=== PATIENT | female | born 1955 | race Caucasian/White ===

== ENCOUNTER 2018-10-15 14:16 | Day surgery (SDC) ==
--- NOTE | 2018-10-15 15:14 | Diag Imaging Result Doc PS360 ---
EXAM: CHEST-PORTABLE 10/15/2018 HISTORY: ams TECHNIQUE: AP portable upright at 1506 COMMENT: The inspiration is suboptimal. There is cardiomegaly. There is increased pulmonary vascularity. The appearance of the chest has not changed significantly since 02/27/2018. IMPRESSION: Stable chest. Electronically signed by Tai Soler 10/15/2018 3:12 PM
[2018-10-15 15:22] LABS: URINE SOURCE CATH
[2018-10-15 15:29] LABS: BASO# 0.04 X1000 (0.0-0.2); BASO% 0.9 % (0.0-0.8); EOS# 0.16 X1000 (0.0-0.7); EOS% 3.7 % (0.0-10.0); HEMATOCRIT 37.4 % (37.0-47.0); HEMOGLOBIN 12.7 g/dL (12.0-16.0); IMM GRAN# 0.03 X1000 (0.0-0.04); IMM GRAN% 0.7 % (0.0-0.5); LYMPH# 1.15 X1000 (1.2-3.4); LYMPH% 26.3 % (20.5-51.1); MCH 32.9 PG (27-31); MCV 96.9 FL (81-99); MONO% 11.4 % (1.7-9.3); MPV 11.3 FL (7.4-10.4); PLT 95 X1000 (130-400); RBC 3.86 XMIL (4.2-5.4); RDW 14.2 % (11.5-14.5); WBC 4.38 X1000 (4.8-10.8)
[2018-10-15 15:35] LABS: BILIRUBIN URINE NEGATIVE (NEGATIVE); BLOOD URINE SMALL (NEGATIVE); COLOR YELLOW; GLUCOSE URINE NEGATIVE (NEGATIVE); KETONE URINE NEGATIVE (NEGATIVE); LEUKOCYTES URINE MODERATE (NEGATIVE); NITRITE URINE NEGATIVE (NEGATIVE); PH URINE 6.5; PROTEIN URINE 30 mg/dL (NEGATIVE); SP GRAVITY URINE 1.018; TURBIDITY URINE HAZY (CLEAR); UROBILINOGEN URINE >12 mg/dL (NORMAL)
[2018-10-15 15:37] LABS: INR 1.44; PROTIME 18.7 Seconds (11.0-16.0); PTT 32.2 Seconds (22.3-41.8)
[2018-10-15 15:39] LABS: UR EPITHELIAL CELLS >10 /HPF (<10); URINE BACTERIA NEGATIVE /HPF; URINE WBC 20-40 /HPF (<10)
[2018-10-15 15:48] LABS: AGAP 12; ALBUMIN 3.1 g/dL (3.5-5.0); ALKALINE PHOSPHATASE 102 U/L (32-104); BUN 11 mg/dL (8-22); CALCIUM 9.3 mg/dL (8.8-10.2); CHLORIDE 116 mmol/L (98-107); CK PROFILE 93 U/L (24-173); COSMO 288; CREATININE 0.7 mg/dL (0.5-0.9); ESTIMATED GFR > 60; GLUCOSE 103 mg/dL (70-104); GOT 58 U/L (10-30); GPT 23 U/L (10-36); POTASSIUM 4.4 mmol/L (3.5-5.1); SODIUM 145 mmol/L (136-145); TCO2 17 mmol/L (25-35); TOTAL BILIRUBIN 3.06 mg/dL (0.20-1.00); TOTAL PROTEIN 6.2 g/dL (6.3-8.3)
[2018-10-15 15:55] LABS: URINE CASTS GRANULAR PRESENT; URINE CRYSTALS NONE SEEN; URINE YEAST NONE SEEN
--- NOTE | 2018-10-15 15:56 | Diag Imaging Result Doc PS360 ---
EXAM: CT HEAD W/O CONTRAST 10/15/2018 HISTORY: AMS TECHNIQUE: This exam was performed using automated exposure control, adjustment of mA or kV according to patient size, and/or use of iterative reconstruction technique. COMMENT: There is no evidence of mass effect, bleed, or abnormal extra-axial fluid collection. There is hyperostosis of the calvarium. There is no evidence of acute fracture. The paranasal sinuses are clear. Compared to the previous examination of 02/27/2018, there has been no appreciable change. IMPRESSION: No evidence of acute intracranial disease. Electronically signed by Tai Soler 10/15/2018 3:53 PM
[2018-10-15] MEDS ORDERED: ROCEPHIN 1 GM in NS 50 ML IV ONE (16:40)
[2018-10-15] MEDS ORDERED: SODIUM CHLORIDE 0.9% INJ ONE ×2 (16:47→19:47)
[2018-10-15] MEDS ORDERED: PROTONIX IV ONE (16:47)
[2018-10-15] MEDS ORDERED: TORADOL IV PRN (17:34)
[2018-10-15] MEDS ORDERED: NS 1,000 ML IV ONE ×2 (17:34→19:54)
[2018-10-15] MEDS ORDERED: ZOFRAN PO PRN (17:34)
[2018-10-15] MEDS ORDERED: NS 50 ML ONE (18:24)
[2018-10-15] MEDS ORDERED: ROCEPHIN ONE (18:25)
[2018-10-15] MEDS: ZOSYN 3.375 GM in NS 50 ML IV SCH (20:27)
[2018-10-15] MEDS: LOVENOX SUBQ SCH (20:28)
[2018-10-15] MEDS: XIFAXAN PO SCH (20:28)
[2018-10-15] MEDS: LACTULOSE PO SCH (20:28)
--- NOTE | 2018-10-15 20:29 | HISTORY AND PHYSICAL ---
CHIEF COMPLAINT: Altered mental status, confusion. HPI: She is a 63-year-old obese white female discharged 6 months ago. Basically came into the hospital with altered mental status, confusion, UTI symptoms. Upon workup in the emergency room CT head is negative. Chest x-ray stable and she has UTI. PT slightly elevated 18, INR 1.4. Basically admitted to the hospital with altered mental status due to UTI, plasma lactate levels is normal. Ammonia level is pending. She has a history of CASANOVA with splenomegaly and cirrhosis of liver. As a result, a hospital admission was warranted. 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 PAST SURGICAL HISTORY: Tonsillectomy, cholecystectomy, vaginal hysterectomy in 1997 due to cervical cancer, , right cataract surgery. MEDICATIONS: Aldactone 50 mg daily, Icar C Plus 1 tablet daily, potassium 20 mEq daily, lactulose 20 p.o. b.i.d., Lexapro 10 daily, Lasix 40 daily. ALLERGIES: Not known. SOCIAL HISTORY: , 2 kids, retired, lives in [place]. No smoking, no alcohol. FAMILY HISTORY: Father from congestive heart failure and COPD, mother had a stroke at 92 and sister had of lung cancer. REVIEW OF SYSTEMS: HEENT: No headache, no vision problem. No earache, no sore throat . Cardiopulmonary: No chest pain, shortness of breath, PND, orthopnea. Gastrointestinal: Abdominal hernia, no nausea vomiting, history of dysuria, hesitancy, frequency and swelling of feet. No joint pain. Neuro: Confusion and no weakness or seizures. EXAMINATION: Temperature is 98.1 degrees, pulse is 86, blood pressure 140/76, 5 feet 4, 260 pounds.HEENT: Atraumatic, normocephalic. Pupils equal, round, reactive to light. No significant anemia, no jaundice noted. Neck: Supple. No lymphadenopathy. Chest: Bilateral air entry. Heart: Distant heart sounds. Breast: Deferred. Belly: Soft, obese, with large ventral hernia noted. Extremities: Chronic stasis changes. Extremities: Nonpitting edema, no asterixis noted. No obvious deficits noted. INVESTIGATIONS: CBC. White cell count 4.3, hematocrit 37, platelets 95,000. PT 18, INR 1.4. SMA 7 is normal. Total bilirubin 3.6, albumin 3.1, proBNP is normal. Cardiac enzymes were normal. Urine is positive for infection. Chest x-ray slightly cardiomegaly. CT head is negative. ASSESSMENT AND PLAN: A 63-year-old white female admitted to the hospital with metabolic encephalopathy due to urinary tract infection with the following problems. 1. Urinary tract infection. IV Zosyn. 2. 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 Previous workup was negative. 3. Thrombocytopenia stable. 4. Elevated PT due to cirrhosis and will use some low dose of Lovenox for DVT prophylaxis. 5. Check the ammonia level and will continue on Xifaxan and lactulose. 6. Reconcile home medications. Will use the IV fluids 40 mL/h and repeat the labs in the morning and follow up on the pending labs. 7. Large ventral hernia nonobstructive currently stable. 8. History of sleep apnea. Not interested in CPAP. 9.Tinea cruris Nystatin cream as directed. cc: Lio Westfall MD MTDD
[2018-10-16] MEDS: ZOSYN 3.375 GM in NS 50 ML IV SCH ×4 (03:53→23:28)
[2018-10-16] MEDS: MYCOSTATIN CREAM TOP SCH ×3 (04:08→23:28)
[2018-10-16 05:12] LABS: ALLEN TEST YES; BLOOD TYPE ARTERIAL; HCO3-(ACT) 22.6 mmoll (20.0-26.0); METHB 1.1 % (0.0-1.5); O2(CT) 14.6 mL/dL (15.0-23.0); O2HB 95.4 % (95.0-99.0); PCO2(98.6) 32 mmHg (35-45); PO2(98.6) 82 mmHg (60-100); SAMPLE BLOOD; SAO2 99.1 % (95.0-100.0); THB 10.8 g/dL (11.5-17.4); pH(98.6) 7.42 (7.35-7.45)
[2018-10-16 07:56] LABS: INR 1.37
[2018-10-16 08:02] LABS: BASO# 0.02 X1000 (0.0-0.2); BASO% 0.5 % (0.0-0.8); EOS# 0.17 X1000 (0.0-0.7); EOS% 4.5 % (0.0-10.0); HEMATOCRIT 32.2 % (37.0-47.0); HEMOGLOBIN 10.8 g/dL (12.0-16.0); LYMPH# 1.24 X1000 (1.2-3.4); LYMPH% 32.5 % (20.5-51.1); MCH 32.7 PG (27-31); MCHC 33.5 g/dL (33-37); MCV 97.6 FL (81-99); MONO# 0.44 X1000 (0.11-0.59); MONO% 11.5 % (1.7-9.3); MPV 10.5 FL (7.4-10.4); NEUT# 1.94 X1000 (1.4-6.5); PLT 81 X1000 (130-400); RDW 14.3 % (11.5-14.5); WBC 3.81 X1000 (4.8-10.8)
[2018-10-16 08:12] LABS: AGAP 7; ALB/GLOB RATIO 0.9; ALBUMIN 2.5 g/dL (3.5-5.0); ALKALINE PHOSPHATASE 89 U/L (32-104); BUN 9 mg/dL (8-22); CALCIUM 8.5 mg/dL (8.8-10.2); CHLORIDE 115 mmol/L (98-107); COSMO 281; CREATININE 0.5 mg/dL (0.5-0.9); ESTIMATED GFR > 60; GLUCOSE 85 mg/dL (70-104); GOT 31 U/L (10-30); GPT 17 U/L (10-36); POTASSIUM 3.5 mmol/L (3.5-5.1); SODIUM 142 mmol/L (136-145); TCO2 20 mmol/L (25-35); TOTAL BILIRUBIN 3.27 mg/dL (0.20-1.00); TOTAL PROTEIN 5.4 g/dL (6.3-8.3)
[2018-10-16 08:57] LABS: HEMOGLOBIN A1C 4.1 % (4.8-6.0)
[2018-10-16] MEDS: XIFAXAN PO SCH ×2 (11:03→23:29)
[2018-10-16] MEDS: LACTULOSE PO SCH ×2 (11:03→23:28)
[2018-10-16] MEDS: LEXAPRO PO SCH (11:03)
[2018-10-16] MEDS: PROTONIX IV SCH (11:03)
--- NOTE | 2018-10-16 12:46 | PROGRESS NOTE ---
DATE: 10/16/2018 SUBJECTIVE: The patient's confusion is slightly better. She is morbidly obese. She is lot better than yesterday. PHYSICAL EXAMINATION: Vital Signs: Temperature is 98 degrees, pulse is 80, blood pressure 130/65, weight 260 pounds. HEENT Examination: Within normal limits. Chest: Clear. Heart: Heart sounds are regular. Abdomen: Belly is soft. Large ventral hernia. Extensive tenia infection noted in both groins. ASSESSMENT AND PLAN: 1. A 63-year-old, white female admitted to the hospital with metabolic encephalopathy due to ammonia. Ammonia level is high due to cirrhosis of the liver due to nonalcoholic steatohepatitis. Continue on Xifaxan and lactulose. 2. Clear liquids. 3. Urinary tract infection, on intravenous Zosyn. 4. Gastrointestinal prophylaxis with intravenous Protonix and deep venous thrombosis prophylaxis with Lovenox. 5. Continue on the clear liquids. Discontinue intravenous fluids. Out of the bed with physical therapy. Follow up on the labs in the morning. 6. Chronic thrombocytopenia due to splenomegaly from cirrhosis. LEVEL OF DOCUMENTATION: 25 minutes. cc: Lio Westfall MD
[2018-10-16] MEDS: LOVENOX SUBQ SCH (23:29)
[2018-10-17] MEDS: ZOSYN 3.375 GM in NS 50 ML IV SCH ×5 (04:49→23:45)
[2018-10-17 08:05] LABS: INR 1.38; PROTIME 18.1 Seconds (11.0-16.0)
--- NOTE | 2018-10-17 08:08 | EKG Report ---
Test Performed on : 10/15/2018 2:24:05 PM Test Reason : ams Blood Pressure : / mmHG Vent. Rate : 089 BPM Atrial Rate : 089 BPM P-R Int : 184 ms QRS Dur : 094 ms QT Int : 388 ms P-R-T Axes : 036 -05 016 degrees QTc Int : 472 ms Normal sinus rhythm. Normal ECG When compared with ECG of 15-OCT-2018 14:22, (Unconfirmed) Previous ECG has undetermined rhythm, needs review Unconfirmed Result
[2018-10-17 08:15] LABS: BASO# 0.02 X1000 (0.0-0.2); BASO% 0.5 % (0.0-0.8); EOS# 0.31 X1000 (0.0-0.7); EOS% 8.2 % (0.0-10.0); HEMATOCRIT 31.5 % (37.0-47.0); HEMOGLOBIN 10.5 g/dL (12.0-16.0); LYMPH# 1.55 X1000 (1.2-3.4); LYMPH% 40.8 % (20.5-51.1); MCH 32.3 PG (27-31); MCHC 33.3 g/dL (33-37); MCV 96.9 FL (81-99); MONO# 0.37 X1000 (0.11-0.59); MONO% 9.7 % (1.7-9.3); MPV 11.1 FL (7.4-10.4); NEUT# 1.55 X1000 (1.4-6.5); NEUT% 40.8 % (42.2-75.2); PLT 83 X1000 (130-400); RBC 3.25 XMIL (4.2-5.4); RDW 13.9 % (11.5-14.5)
[2018-10-17 08:24] LABS: AGAP 8; ALB/GLOB RATIO 0.9; ALBUMIN 2.5 g/dL (3.5-5.0); ALKALINE PHOSPHATASE 87 U/L (32-104); BUN 8 mg/dL (8-22); CALCIUM 8.5 mg/dL (8.8-10.2); CHLORIDE 117 mmol/L (98-107); COSMO 286; CREATININE 0.6 mg/dL (0.5-0.9); ESTIMATED GFR > 60; GLUCOSE 88 mg/dL (70-104); GOT 30 U/L (10-30); GPT 16 U/L (10-36); POTASSIUM 3.4 mmol/L (3.5-5.1); SODIUM 145 mmol/L (136-145); TCO2 20 mmol/L (25-35); TOTAL BILIRUBIN 2.74 mg/dL (0.20-1.00); TOTAL PROTEIN 5.3 g/dL (6.3-8.3)
[2018-10-17] MEDS ORDERED: KLOR-CON PO ONE (08:35)
[2018-10-17] MEDS: LEXAPRO PO SCH (08:37)
[2018-10-17] MEDS: PROTONIX IV SCH (08:37)
[2018-10-17] MEDS: LACTULOSE PO SCH ×2 (08:37→20:22)
[2018-10-17] MEDS: XIFAXAN PO SCH ×2 (08:37→20:14)
[2018-10-17] MEDS: MYCOSTATIN CREAM TOP SCH ×2 (08:38→20:22)
[2018-10-17] MEDS: LOVENOX SUBQ SCH (20:14)
--- NOTE | 2018-10-17 20:45 | PROGRESS NOTE ---
DATE: 10/17/2018 SUBJECTIVE: The patient is slightly improved. Confusion is better. Morbidly obese. EXAMINATION: Vital Signs: Temperature is 97, pulse is 63, blood pressure 132/51 on room air 98%. HEENT: Within normal limits. Neck: Supple. No lymphadenopathy. Chest: Clear. Heart: Sounds are regular. Abdomen: Belly is soft, nontender. Extensive ventral hernia noted and extensive tenia cruris noted. LABS: CBC: White cell count 3.8, hematocrit 31, platelets 83. PT 18. INR 1.38. SMA-7: Sodium 145, potassium 3.4, chloride 117, BUN 8, creatinine 0.6, glucose 88. Total bilirubin 2.74, ammonia 90. LFTs were normal. ASSESSMENT AND PLAN: 1. Altered mental status due to ammonia encephalopathy. Continue on Xifaxan and lactulose. Check the levels in the morning. 2. Urinary tract infection on IV Zosyn. 3. Advance the diet and check the levels in the morning. 4. Continue on nystatin cream, tenia cruris. LEVEL OF DOCUMENTATION: 25 minutes. cc: Lio Westfall MD
[2018-10-18] MEDS: ZOSYN 3.375 GM in NS 50 ML IV SCH ×4 (05:40→23:35)
[2018-10-18 08:13] LABS: AGAP 7; BUN 6 mg/dL (8-22); CALCIUM 8.6 mg/dL (8.8-10.2); CHLORIDE 111 mmol/L (98-107); COSMO 278; CREATININE 0.5 mg/dL (0.5-0.9); ESTIMATED GFR > 60; GLUCOSE 88 mg/dL (70-104); POTASSIUM 3.5 mmol/L (3.5-5.1); SODIUM 141 mmol/L (136-145); TCO2 23 mmol/L (25-35)
[2018-10-18 09:13] LABS: HEMOGLOBIN A1C 4.1 % (4.8-6.0)
[2018-10-18] MEDS: XIFAXAN PO SCH ×2 (09:30→20:58)
[2018-10-18] MEDS: LEXAPRO PO SCH (09:30)
[2018-10-18] MEDS: PROTONIX IV SCH (09:30)
[2018-10-18] MEDS: MYCOSTATIN CREAM TOP SCH ×2 (09:31→20:58)
[2018-10-18] MEDS: LACTULOSE PO SCH ×2 (09:31→20:58)
[2018-10-18] MEDS: LOVENOX SUBQ SCH (20:58)
--- NOTE | 2018-10-18 22:16 | PROGRESS NOTE ---
DATE: 10/18/2018 SUBJECTIVE: The patient is a little better and more alert, tolerating her diet very well. OBJECTIVE: On exam, temperature is 98.8 degrees, pulse is 90, blood pressure 110/62. The patient is alert and oriented to time, place and person. HEENT exam within normal limits. Chest is clear. Distant heart sounds. Belly is soft, obese. Suboptimal exam. Tinea cruris in the groin noted. Chronic stasis changes in both legs. LABORATORY DATA: CBC: White cell count 3.8, hematocrit 32, platelets 83,000. PT 18, INR 1.38. SMA 7: Sodium 141, potassium 3.5, chloride 111, BUN 6, creatinine 0.8. Hemoglobin A1c 4.1. Ammonia level 60. ASSESSMENT AND PLAN: 1. Ammonia encephalopathy due to cirrhosis of liver, due to nonalcoholic steatohepatitis, improving. On Xifaxan and lactulose. 2. Urinary tract infection. On intravenous antibiotics. 3. Morbid obesity, stable. 4. Continue home medications. If she is stable, we will discharge in the morning. Out of the bed with physical therapy. Level of documentation 25 minutes. cc: Lio Westfall MD
[2018-10-19] MEDS: ZOSYN 3.375 GM in NS 50 ML IV SCH ×2 (06:07→11:10)
[2018-10-19 07:53] VITALS: BP 119/40
[2018-10-19] MEDS ORDERED: PREVNAR 13 IM ONE (08:47)
[2018-10-19] MEDS: LACTULOSE PO SCH (09:26)
[2018-10-19] MEDS: PROTONIX IV SCH (09:26)
[2018-10-19] MEDS: XIFAXAN PO SCH (09:26)
[2018-10-19] MEDS: LEXAPRO PO SCH (09:26)
--- NOTE | 2018-10-20 | DISCHARGE SUMMARY ---
ADMISSION DATE: 10/15/2018 DISCHARGE DATE: 10/19/2018 DISCHARGING DIAGNOSES: 1. Altered mental status due to metabolic encephalopathy due to ammonia. 2. Ammonia encephalopathy due to cirrhosis of liver due to non-alcoholic steatohepatitis. 3. Thrombocytopenia due to splenomegaly. 4. Morbid obesity. 5. Large nonobstructive ventral hernia. 6. Tenia cruris. 7. Urinary tract infection. BRIEF HISTORY: Please see the H and P that was done on 10/15/2018. In brief, she is a 63-year- old white female with the above problems, came in with altered mental status associated with elevated ammonia level, UTI symptoms, and rash in the groin due to tenia cruris. HOSPITAL COURSE: Patient was given IV fluids, Xifaxan and lactulose. Follow up ammonia level came down to 60. The patient came back to the baseline. The labs at the time of discharge as follows: White cell count 3.8, hematocrit 31.5, platelets 83,000. PT 18, INR 1.38. ABG on room air pH is 7.42, pCO2 of 32 PO2 of 82. SMA-7: Sodium 140, potassium 3.5, chloride 111, BUN 6, creatinine 0.5. Glucose 88. Hemoglobin A1c 4.1. Calcium 8.6, total bilirubin 2.74. Ammonia level 60. Albumin 23. Urine cultures are pending. DISCHARGE INSTRUCTIONS: 1. Pneumococcal 13 vaccine 10/19/2018. 2. Low-salt diet, fluid restriction. 3. ICar-C Plus 1 tablet daily, lactulose 30 p.o. b.i.d., Levaquin 500 daily for 7 days, Lexapro 10 daily, nystatin powder 1 application b.i.d. 4. Follow up in my office in 2 weeks. cc: Lio Westfall MD
== END 2018-10-19 11:22 | disposition home health service (06) ==
LOC: SUPCPDRO → ED 14:16 → MED 17:27 → INTOOBSV 17:27 → 3N 17:27 → MED 10-19 11:22
PROVIDERS: ATTEND Internal Medicine
CPT/HCPCS: 70450; 71010; 71045; 80048; 80053; 81001; 82140; 82550; 82805; 83036; 83605; 83880; 84484; 85025; 85610; 85730; 90670; 93005; 96365; 96375; 97163; 97530; 99285; A9270; C9113; J0696; J1650; J2543; S0164

== ENCOUNTER 2019-03-21 15:06 | Inpatient (IN) ==
[2019-03-21] MEDS ORDERED: VANCOMYCIN IV PER PHARMACY MISC SCH (17:06)
[2019-03-21 17:47] LABS: HEMATOCRIT 35.3 % (37.0-47.0); HEMOGLOBIN 11.8 g/dL (12.0-16.0); MCH 32.8 PG (27-31); MCHC 33.4 g/dL (33-37); MCV 98.1 FL (81-99); MPV 10.3 FL (7.4-10.4); RBC 3.6 XMIL (4.2-5.4); RDW 14.2 % (11.5-14.5); WBC 5.93 X1000 (4.8-10.8)
[2019-03-21] MEDS ORDERED: VANCOMYCIN 2,500 MG in NS 500 ML IV ONE (18:00)
[2019-03-21 18:11] LABS: AGAP 7; ALB/GLOB RATIO 0.7; ALBUMIN 2.6 g/dL (3.5-5.0); ALKALINE PHOSPHATASE 98 U/L (32-104); BUN 12 mg/dL (8-22); C REACTIVE PROT QUANT 27.21 mg/L (0.00-5.00); CALCIUM 9.2 mg/dL (8.8-10.2); CHLORIDE 107 mmol/L (98-107); COSMO 274; CREATININE 0.6 mg/dL (0.5-0.9); ESTIMATED GFR > 60; GLUCOSE 112 mg/dL (70-104); GOT 28 U/L (10-30); GPT 13 U/L (10-36); POTASSIUM 3.6 mmol/L (3.5-5.1); SODIUM 137 mmol/L (136-145); TCO2 23 mmol/L (25-35); TOTAL BILIRUBIN 2.31 mg/dL (0.20-1.00); TOTAL PROTEIN 6.1 g/dL (6.3-8.3)
[2019-03-21] MEDS: LACTULOSE PO SCH (21:26)
[2019-03-21] MEDS ORDERED: NEXIUM IV SCH (22:15)
[2019-03-21] MEDS ORDERED: SODIUM CHLORIDE 0.9% INJ SCH (22:15)
--- NOTE | 2019-03-21 22:29 | HISTORY AND PHYSICAL ---
CHIEF COMPLAINT: Traumatic ulcer on the right leg, which was not healing since Wednesday. HISTORY OF PRESENT ILLNESS: She is a 63-year-old white female who was seen in the emergency room with a big traumatic ulcer on the right leg. The patient has infected wound, sent home on antibiotics with Silvadene cream and she had grossly foul-smelling drainage and very unkempt. She has a history of cirrhosis of liver and failure of outpatient treatment. Admitted to the hospital with IV antibiotics and wound consult care. PAST MEDICAL HISTORY: 1. 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 2. Colonic diverticulosis. 3. Metabolic syndrome. 4. Ventral hernia, huge on the right side. 5. Kidney stone on the left side. 6. Sleep apnea. 7. B12 deficiency. 8. Recently had shingles on the right T10 distribution. PAST SURGICAL HISTORY: Tonsillectomy, cholecystectomy, vaginal hysterectomy due to cervical cancer, section, right cataract surgery. MEDICATIONS: Lexapro 10 daily, Lasix 40 daily, Icar C Plus 1 tablet daily, Aldactone 50 daily, lactulose 30 p.o. b.i.d. ALLERGIES: Not known. SOCIAL HISTORY: , 2 children, retired, living in [place]. No smoking. No alcohol. FAMILY HISTORY: Father of congestive heart failure and COPD. Mom had a stroke at 92. Sister had lung cancer. REVIEW OF SYSTEMS: HEENT: No headache. No vision problem. No earache. No sore throat. Neck: There is no goiter. No lymphadenopathy. No bruit. Cardiopulmonary: No chest pain, shortness of breath, PND, orthopnea. No lumps in the breast. Gastrointestinal: No nausea, altered bowel habits, bleeding per rectum. Large ventral hernia noted. Genitourinary: No history of hesitancy, frequency, dysuria. Extremities: Chronic lymphedema in both legs, and the right leg had a traumatic ulcer, possibly infected. Neurological: Symptoms are confusion, weakness, dizziness, seizures. PHYSICAL EXAMINATION: VITAL SIGNS: Afebrile, pulse is 90, blood pressure 113/52, 5 feet 4 inches, 270 pounds. HEENT EXAM: Within normal limits. NECK: Supple. No lymphadenopathy. CHEST: Bilateral air entry. CARDIOVASCULAR: Heart sounds are regular, distant. ABDOMEN: Belly is soft. He has a ventral hernia. Suboptimal exam due to obesity. EXTREMITIES: Right leg chronic lymphedema. She has a 3 inches long 2 inches wide ulcer on the right lower leg just above the ankle with surrounding inflammation noted. NEUROLOGIC EXAM: No asterixis noted. INVESTIGATIONS: CBC: White cell count 5.9, hematocrit 35, platelets 151,000. Sodium 137, potassium 3.6, chloride 107, BUN 12, creatinine 0.6, glucose 112, total bilirubin 2.3, elevated ammonia 57, total protein 6.1. ASSESSMENT AND PLAN: 1. 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 Plan is IV vancomycin. Wound consult. 2. Cirrhosis. Continue on lactulose. Ammonia levels were normal. Continue on Lasix and Aldactone. 3. Depression on Lexapro. 4. Nexium and low dose of Lovenox for gastrointestinal and deep venous thrombosis prophylaxis, and we will follow up. cc: Lio Westfall MD
[2019-03-22] MEDS: LOVENOX SUBQ SCH (05:56)
[2019-03-22] MEDS: PROTONIX IV SCH (05:57)
[2019-03-22] MEDS: SODIUM CHLORIDE 0.9% INJ SCH (05:57)
[2019-03-22] MEDS: LACTULOSE PO SCH ×4 (09:23→22:14)
[2019-03-22] MEDS: LEXAPRO PO SCH (09:24)
[2019-03-22] MEDS: ICAR-C PLUS PO SCH (09:24)
[2019-03-22] MEDS: ALDACTONE PO SCH (09:24)
[2019-03-22] MEDS: LASIX PO SCH (09:24)
[2019-03-22] MEDS: SANTYL OINT TOP SCH (11:01)
[2019-03-22] MEDS: VANCOMYCIN 2,000 MG in NS 500 ML IV SCH (15:19)
--- NOTE | 2019-03-22 22:19 | PROGRESS NOTE ---
DATE: 03/22/2019 SUBJECTIVE: The patient is a little better and waiting for wound care consult to be seen. Right leg has a traumatic ulcer, quite a bit large with secondary infection. No fever. OBJECTIVE: Vital signs: Temperature is 99.4 degrees, pulse 82. Vitals are stable. HEENT: Within normal limits. Neck: Supple. Chest: Clear. Ventral hernia noted. Extremities: Traumatic right leg ulcer with localized infection. LABORATORY DATA: Within normal limits. ASSESSMENT AND PLAN: 1. Cirrhosis of liver, stable. 2. Deep vein thrombosis prophylaxis with Lovenox, gastrointestinal prophylaxis with IV Protonix. 3. IV vancomycin with traumatic right leg ulcer and wound care consult was obtained. Continue home medications. Physical therapy out of the bed. LEVEL OF DOCUMENTATION: 25 minutes. cc: Lio Westfall MD MTDD
[2019-03-23] MEDS: SODIUM CHLORIDE 0.9% INJ SCH (06:33)
[2019-03-23] MEDS: LOVENOX SUBQ SCH (06:33)
[2019-03-23] MEDS: PROTONIX IV SCH (06:33)
[2019-03-23] MEDS: LEXAPRO PO SCH (08:46)
[2019-03-23] MEDS: ICAR-C PLUS PO SCH (08:46)
[2019-03-23] MEDS: LASIX PO SCH (08:46)
[2019-03-23] MEDS: ALDACTONE PO SCH (08:46)
[2019-03-23] MEDS: LACTULOSE PO SCH ×2 (08:47→21:02)
[2019-03-23] MEDS: SANTYL OINT TOP SCH (09:48)
[2019-03-23] MEDS: VANCOMYCIN 2,000 MG in NS 500 ML IV SCH (09:48)
--- NOTE | 2019-03-23 21:46 | PROGRESS NOTE ---
DATE: 03/23/2019 SUBJECTIVE: Appreciated wound consult. The patient had Santyl ointment applied after washing, and the wound is dressed. OBJECTIVE/EXAM: Vital Signs: Temperature 98. vitals are stable. HEENT: Within normal limits. Neck: Supple. Chest: Clear. Heart: Sounds are regular. Abdomen: Belly is soft. Suboptimal exam. INVESTIGATIONS: None reported. ASSESSMENT AND PLAN: Traumatic ulcers on the right leg with chronic lymphedema with badly infected wound. Tdap was given 12/27/2018, and continued wound care and IV vancomycin. Other problems are stable if she continues to get better, we will discharge on oral antibiotics and go to the wound clinic as an outpatient and follow up. LEVEL OF DOCUMENTATION: 25 minutes. cc: Lio Westfall MD
[2019-03-24] MEDS: VANCOMYCIN 2,000 MG in NS 500 ML IV SCH (02:08)
[2019-03-24] MEDS: PROTONIX IV SCH (06:15)
[2019-03-24] MEDS: LOVENOX SUBQ SCH (06:15)
[2019-03-24] MEDS: SODIUM CHLORIDE 0.9% INJ SCH (06:15)
[2019-03-24] MEDS: ICAR-C PLUS PO SCH (07:59)
[2019-03-24] MEDS: LEXAPRO PO SCH (08:00)
[2019-03-24] MEDS: ALDACTONE PO SCH (08:00)
[2019-03-24] MEDS: LASIX PO SCH (08:00)
[2019-03-24] MEDS: LACTULOSE PO SCH (08:00)
[2019-03-24] MEDS: SANTYL OINT TOP SCH (08:01)
[2019-03-24 08:16] VITALS: BP 106/44
--- NOTE | 2019-03-25 22:10 | DISCHARGE SUMMARY ---
ADMISSION DATE: 03/21/2019 DISCHARGE DATE: 03/24/2019 DISCHARGING DIAGNOSIS: Right leg traumatic ulcer with chronic lymphedema with localized cellulitis with black eschar. SECONDARY DIAGNOSES: 1. 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 2. Colonic diverticulosis. 3. Metabolic syndrome. 4. Ventral hernia huge on the right side. 5. Kidney stones on the left side. 6. Sleep apnea. 7. B12 deficiency. 8. History of shingles in the right T10 distribution stable. CONSULT: Gricel wound consult. BRIEF HISTORY: Please see the H and P that was done on 03/21/2019. In brief she is 63-year-old white female came in my office as a followup from the ER visits with a foul smelling emanating discharge on the right lower leg about 3 inches long, 2 inches wide, traumatic ulcer which is not healing as an outpatient. She has comorbid condition and she was admitted to the hospital to prevent the impending sepsis due to localized cellulitis. She was given IV Lasix. Wound consult care was obtained. The patient was given Vashe treatment followed by Santyl ointment. She was started on IV vancomycin. Follow up the wound is clean and continue to follow up as an outpatient with the wound clinic in [facility]. LABORATORY DATA: CBC. White cell count 5.9, hematocrit 35, platelets 151,000. Sodium 137, potassium 3.6, chloride 107, BUN 12, creatinine 0.6, glucose 112, calcium 9.2, bilirubin 2.3, ammonia 57, CRP 27, total protein 6.1. DISCHARGE INSTRUCTIONS: 1. The patient was given Tdap 12/27/2018. Pneumococcal vaccine 13 was given in 10/19/2018. 2. Lexapro 10 daily, Lasix 40 daily, Icar-C Plus 1 tablet daily, Aldactone 50 daily, Levaquin 500 daily for 10 days, lactulose 30 mL p.o. b.i.d. for ammonia encephalopathy. Follow up in wound clinic at [facility] and follow up in my office in 10 days. cc: Lio Westfall MD
== END 2019-03-24 11:37 | disposition home health service (06) | DRG 603 ==
LOC: DIRADM 15:06 → 4N 15:31
PROVIDERS: ADMIT Internal Medicine; ATTEND Internal Medicine

== ENCOUNTER 2019-05-05 17:20 | Inpatient (IN) ==
--- NOTE | 2019-05-05 17:57 | PROVIDER DOCUMENTATION ---
HPI-General Adult - General Chief Complaint: Weakness Stated Complaint: EDEMA Time Seen by Provider: 05/05/19 17:53 Source: patient Allergies/Adverse Reactions: Patient Allergies Allergy/AdvReac Type Severity Reaction Status Date / Time No Known Allergies Allergy Verified 05/05/19 18:45 Home Medications: Home Medication List Medication Instructions Recorded Confirmed Last Taken Type Escitalopram Oxalate [Lexapro] 10 mg PO DAILY #30 tab 03/04/18 05/05/19 05/05/19 Rx Furosemide [Lasix] 40 mg PO DAILY 12/22/18 05/05/19 05/05/19 History Iron,Carbonyl/Vit C/Vit B12/FA [Fe 1 tab PO DAILY 12/22/18 05/05/19 05/05/19 History C Plus Tablet] Spironolactone 50 mg PO DAILY 12/22/18 05/05/19 05/05/19 History Lactulose 30 ml PO BID #600 udc 03/24/19 05/05/19 05/05/19 Rx Levofloxacin [Levaquin] 500 mg PO DAILY #10 tab 03/24/19 05/05/19 05/05/19 Rx - History of Present Illness -Gen Adult Nature of Presenting Problems: This theodore 64yo female with PMH of cirrohsis who presents with CC of weakness. The patient reports that starting today she has had some generalized weakness and some vomiting. Location of Pain/Injury: reports: none Onset/Duration: reports: this morning Associated Symptoms: reports: vomiting Review of Systems - Adult - REVIEW OF SYSTEMS - ADULT ROS:: limited per condition Constitutional: denies: fever Eyes: denies: blurred vision Ears, Nose, Mouth & Throat: reports: other (cough) Cardiovascular: denies: chest pain Respiratory: denies: shortness of breath Gastrointestinal: reports: vomiting. denies: abdominal pain, diarrhea Genitourinary: reports: dysuria Musculoskeletal: reports: no symptoms reported. denies: joint pain Integumentary: reports: rash Neurological: reports: no symptoms reported Psychiatric: reports: no symptoms reported. denies: alcohol/drug dependence Endocrine: reports: no symptoms reported Hematologic/Lymphatic: reports: no symptoms reported, other (no bleeding) Allergic/Immunologic: reports: no symptoms reported Past History - Adult - PAST MEDICAL HISTORY-ADULT Review of Records: reports: Old Records Reviewed Major Childhood Illnesses: reports: denies history Cardiovascular: reports: denies history Respiratory: reports: denies history Gastrointestinal: reports: denies history Obstetrical/Gynecological: reports: denies history Genitourinary: reports: denies history Musculoskeletal: reports: denies history Neurological: reports: denies history Endocrine/Immune: reports: denies history Other Conditions: reports: denies history - IMMUNIZATION STATUS Childhood Immunizations: See Nurse Assessment Flu Vaccine: See Nurse Assessment - FAMILY HISTORY Family History: reviewed, not pertinent Physical Exam-General - PHYSICAL EXAM-ADULT Initial Vital Signs Reviewed: Yes - CONSTITUTIONAL General Appearance: alert, slow to respond - EYES Eyes: negative: photophobia - HEAD, EARS, NOSE, MOUTH & THROAT HENMT: normocephalic/atraumatic, moist mucous membranes - NECK Neck: normal inspection - RESPIRATORY Respiratory: decreased breath sounds, rales (left side) - CARDIOVASCULAR Cardiovascular: tachycardia, other (3+ LE edema) - GASTROINTESTINAL (ABDOMEN) Abdominal Exam: non tender, soft - SKIN Integumentary: rash (erythema with tenderness noted on the left lower extremity) - NEUROLOGIC Neurologic: grossly normal - PSYCHIATRIC Psych/Mental Status: normal mood/affect, normal thought content Progress - PLAN OF CARE/RESULTS Progress/Plan/Lab Results: Orders Category Date Time Status CHEST-2 VIEWS [RAD] Stat Exams 05/05/19 17:53 Ordered CBC WITH DIFF [HEME] Stat Lab 05/05/19 17:53 Uncollected COMPREHENSIVE METABOLIC PANEL [CHEM] Stat Lab 05/05/19 17:53 Uncollected PRO B-NATRIURETIC PEPTIDE Stat Lab 05/05/19 17:53 Uncollected PROTIME WITH INR [COAG] Stat Lab 05/05/19 17:54 Uncollected PTT [COAG] Stat Lab 05/05/19 17:54 Uncollected TROPONIN T Stat Lab 05/05/19 17:53 Uncollected URINALYSIS W/POSS RFLX CULT [URINALYSIS] Stat Lab 05/05/19 17:53 Uncollected Result Diagrams: 05/05/19 18:01 05/05/19 18:01 - REASSESSMENT Reassessment #1 Status: other (Discussed case with hospitalist team who have accepted the patient.) Departure - Departure Date of Disposition Decision: 05/05/19 Time of Disposition Decision: 20:30 DIAGNOSIS: Encephalopathy, Tachycardia Cellulitis Qualifiers: Site of cellulitis: extremity Site of cellulitis of extremity: lower extremity Laterality: left Qualified Code(s): L03.116 - Cellulitis of left lower limb Fever Qualifiers: Fever type: unspecified Qualified Code(s): R50.9 - Fever, unspecified Disposition: ADMITTED INPATIENT 09 Certified Medical Emergency: Emergent Condition: Fair Referrals and Follow-Ups: Alberto Westfall MD [Primary Care Provider] - - Critical Care Note This patient required my direct & personal management of CC.: No Attestation - Physician/ MANE Attestation Patient care was provided by Advanced Practice Provider:: No The physician spent face to face time with patient:: Yes Advanced Practice Provider documentation review:: Supervising physician onsite and consulted in the evaluation and care of this patient. The physician did have a face to face encounter with the patient.
[2019-05-05] MEDS ORDERED: NS 1,000 ML IV ONE (18:19)
[2019-05-05 18:30] LABS: BASO# 0.01 X1000 (0.0-0.2); BASO% 0.1 % (0.0-0.8); EOS# 0.02 X1000 (0.0-0.7); EOS% 0.2 % (0.0-10.0); HEMATOCRIT 34.1 % (37.0-47.0); HEMOGLOBIN 11.5 g/dL (12.0-16.0); IMM GRAN# 0.02 X1000 (0.0-0.04); IMM GRAN% 0.2 % (0.0-0.5); LYMPH# 0.43 X1000 (1.2-3.4); LYMPH% 4.8 % (20.5-51.1); MCH 32.3 PG (27-31); MCHC 33.7 g/dL (33-37); MCV 95.8 FL (81-99); MONO# 0.51 X1000 (0.11-0.59); MONO% 5.6 % (1.7-9.3); MPV 10.9 FL (7.4-10.4); NEUT# 8.05 X1000 (1.4-6.5); NEUT% 89.1 % (42.2-75.2); PLT 93 X1000 (130-400); RBC 3.56 XMIL (4.2-5.4); RDW 14.9 % (11.5-14.5); WBC 9.04 X1000 (4.8-10.8)
[2019-05-05 18:36] LABS: INR 1.43; PROTIME 17.7 Seconds (11.0-16.0)
[2019-05-05 18:37] LABS: PTT 34.2 Seconds (22.3-41.8)
[2019-05-05 18:55] LABS: AGAP 12; ALB/GLOB RATIO 0.8; ALBUMIN 2.8 g/dL (3.5-5.0); ALKALINE PHOSPHATASE 100 U/L (32-104); BUN 12 mg/dL (8-22); CALCIUM 9.4 mg/dL (8.8-10.2); CHLORIDE 111 mmol/L (98-107); COSMO 280; CREATININE 0.5 mg/dL (0.5-0.9); ESTIMATED GFR > 60; GLUCOSE 120 mg/dL (70-104); GOT 35 U/L (10-30); GPT 17 U/L (10-36); POTASSIUM 3.8 mmol/L (3.5-5.1); SODIUM 140 mmol/L (136-145); TCO2 17 mmol/L (25-35); TOTAL BILIRUBIN 4.71 mg/dL (0.20-1.00); TOTAL PROTEIN 6.1 g/dL (6.3-8.3)
--- NOTE | 2019-05-05 18:58 | Diag Imaging Result Doc PS360 ---
EXAM: CHEST-1 VIEW - 05/05/2019 HISTORY: fever TECHNIQUE: Portable chest COMPARISON: 03/13/2019 FINDINGS: There is cardiomegaly similar to prior. There is mild prominence of central vascular markings which is decreased. There is no consolidation, pleural effusion, or pneumothorax identified. IMPRESSION: Cardiomegaly. Mild prominence of central vascular markings. No discrete pneumonia. Electronically signed by Gustabo Chadwick 05/05/2019 6:56 PM
[2019-05-05 18:59] LABS: URINE SOURCE CATH
[2019-05-05] MEDS ORDERED: TYLENOL PO ONE (18:59)
[2019-05-05 19:06] LABS: BILIRUBIN URINE SMALL (NEGATIVE); BLOOD URINE LARGE (NEGATIVE); COLOR ORANGE; GLUCOSE URINE NEGATIVE (NEGATIVE); KETONE URINE TRACE mg/dL (NEGATIVE); LEUKOCYTES URINE TRACE (NEGATIVE); NITRITE URINE NEGATIVE (NEGATIVE); PH URINE 5.5; PROTEIN URINE 30 mg/dL (NEGATIVE); SP GRAVITY URINE 1.023; TURBIDITY URINE HAZY (CLEAR); UROBILINOGEN URINE 6 mg/dL (NORMAL)
[2019-05-05 19:07] LABS: UR EPITHELIAL CELLS <10 /HPF (<10); URINE BACTERIA NEGATIVE /HPF; URINE RBC TNTC /HPF (<10); URINE WBC 20-40 /HPF (<10)
[2019-05-05] MEDS ORDERED: VANCOMYCIN 1 GM/NS 1 GM/250 ML IVPB IV ONE (20:10)
[2019-05-05] MEDS ORDERED: ZOSYN 4.5 GM in NS 100 ML IV ONE (20:29)
--- NOTE | 2019-05-05 22:19 | HISTORY AND PHYSICAL ---
PRIMARY CARE PHYSICIAN: Dr. Westfall. CHIEF COMPLAINT: Weakness, lower extremity pain. HISTORY OF PRESENTING ILLNESS: A 64-year-old female with a history of cirrhosis, CASANOVA, obstructive sleep apnea and depression, who presented to the emergency department with complaint of generalized weakness. Patient states that she was fatigued and was feeling bad. She was also complaining of left lower extremity edema. She states that she has been on antibiotics previously for cellulitis. She was evaluated in the emergency department, and her lower extremity was consistent with cellulitis. Subsequently, it was thought that she would need admission for further management. At the time of my examination, patient denied any headache, chest pain, shortness of breath but complained of lower extremity pain and just feeling weak. PAST MEDICAL HISTORY: Includes cirrhosis, CASANOVA, cervical cancer, ventral hernia, obstructive sleep apnea, depression. PAST SURGICAL HISTORY: Hysterectomy, tonsillectomy, cholecystectomy, right cataract surgery. ALLERGIES: No known drug allergies. CURRENT MEDICATIONS: Include Lexapro 10 mg p.o. daily, Lasix 40 mg p.o. daily, lactulose 30 mL p.o. b.i.d., spironolactone 50 mg p.o. daily. SOCIAL HISTORY: No history of smoking, alcohol or illicit drug use. FAMILY HISTORY: Positive for coronary artery disease in father. REVIEW OF SYSTEMS: Fourteen-point review of systems listed as per HPI. Other systems negative. PHYSICAL EXAMINATION: GENERAL: Cooperative, friendly obese female. She is resting comfortably now. VITAL SIGNS: Temperature 100.2 degrees, pulse 101, respirations 18, blood pressure 125/63. HEENT: Atraumatic, normocephalic. Extraocular movements intact. NECK: No masses. CHEST: Clear to auscultation. CARDIOVASCULAR: Regular rate and rhythm. ABDOMEN: Soft. She has a large pannus and possible ventral hernia. GENITOURINARY: No bladder distention. EXTREMITIES: +3 edema and moderate erythema on the left lower extremity. SKIN: Warm. LABORATORIES AND STUDIES: WBC 9.04, hemoglobin 9.5, hematocrit 34.1, platelets 93,000. Sodium 140, potassium 3.8, chloride 111, CO2 17, BUN is 12, creatinine 0.5, glucose 120. UA is nitrite negative. On chest x-ray, no discrete pneumonia. ASSESSMENT: This is a 64-year-old, obese female with a history of cirrhosis, nonalcoholic steatohepatitis, cervical cancer, obstructive sleep apnea and depression, who presented to emergency department complaining of worsening weakness. She was also having moderate amount of erythema on the left lower extremity. She was evaluated in the ED, and her symptoms were consistent with cellulitis. Subsequently, she will require admission for further management. 1. Generalized weakness. 2. Left lower extremity cellulitis. 3. Cirrhosis/nonalcoholic steatohepatitis. 4. Depression. PLAN: 1. We will admit patient to medical floor with telemetry. 2. Continue with supportive treatment. 3. We will consult Physical Therapy. 4. We will start patient on empiric antibiotics. 5. Continue patient on lactulose. 6. Continue patient on our Lexapro. 7. Continue DVT prophylaxis with Lovenox. 8. We will continue to follow and reassess. Make further recommendations based on the patient's clinical course. cc: MD Lio Giles MD
[2019-05-05] MEDS ORDERED: VANCOMYCIN IV PER PHARMACY MISC SCH (22:23)
[2019-05-05] MEDS ORDERED: ZOFRAN IV PRN (22:23)
[2019-05-06] MEDS ORDERED: VANCOMYCIN 1 GM/NS 1 GM/250 ML IVPB IV ONE (01:00)
[2019-05-06] MEDS: ZOSYN 3.375 GM in NS 50 ML IV SCH ×4 (03:14→23:58)
[2019-05-06 07:29] LABS: AGAP 7; BUN 15 mg/dL (8-22); CALCIUM 8.2 mg/dL (8.8-10.2); CHLORIDE 116 mmol/L (98-107); COSMO 284; CREATININE 0.6 mg/dL (0.5-0.9); ESTIMATED GFR > 60; GLUCOSE 104 mg/dL (70-104); POTASSIUM 3.2 mmol/L (3.5-5.1); SODIUM 142 mmol/L (136-145); TCO2 19 mmol/L (25-35)
[2019-05-06 07:37] LABS: BASO# 0.02 X1000 (0.0-0.2); BASO% 0.3 % (0.0-0.8); EOS# 0.12 X1000 (0.0-0.7); EOS% 1.7 % (0.0-10.0); HEMATOCRIT 29.1 % (37.0-47.0); HEMOGLOBIN 9.7 g/dL (12.0-16.0); IMM GRAN# 0.02 X1000 (0.0-0.04); IMM GRAN% 0.3 % (0.0-0.5); LYMPH# 1.21 X1000 (1.2-3.4); LYMPH% 17.2 % (20.5-51.1); MCH 32.6 PG (27-31); MCHC 33.3 g/dL (33-37); MCV 97.7 FL (81-99); MONO% 8.5 % (1.7-9.3); MPV 10.4 FL (7.4-10.4); NEUT# 5.08 X1000 (1.4-6.5); PLT 76 X1000 (130-400); RBC 2.98 XMIL (4.2-5.4); RDW 14.8 % (11.5-14.5); WBC 7.05 X1000 (4.8-10.8)
[2019-05-06] MEDS ORDERED: KLOR-CON PO ONE (08:11)
[2019-05-06] MEDS: ALDACTONE PO SCH (08:53)
[2019-05-06] MEDS: LASIX PO SCH (08:54)
[2019-05-06] MEDS: LACTULOSE PO SCH ×2 (08:54→21:51)
[2019-05-06] MEDS: LEXAPRO PO SCH (08:54)
[2019-05-06] MEDS: LOVENOX SUBQ SCH (08:54)
[2019-05-06] MEDS: ICAR-C PLUS PO SCH (08:54)
[2019-05-06] MEDS ORDERED: ZOFRAN IV PRN (10:21)
[2019-05-06] MEDS: TYLENOL PO PRN (11:09)
[2019-05-06] MEDS ORDERED: SODIUM CHLORIDE 0.9% INJ SCH (12:00)
--- NOTE | 2019-05-06 12:44 | PROGRESS NOTE ---
DATE: 05/06/2019 SUBJECTIVE: A 64-year-old white female admitted to the hospital yesterday with altered mental status, ammonia encephalopathy, weakness. REVIEW OF SYSTEMS: The patient is better. Decreased nausea. Previous right leg ulcer is healing. No other review of systems reported. PAST MEDICAL HISTORY: Reviewed. PAST SURGICAL HISTORY: Reviewed. MEDICINES: Reviewed. ALLERGIES: Not known. PHYSICAL EXAMINATION: Vital Signs: Temperature is 98.5 degrees, pulse 76, blood pressure is 120/50. The patient is 5 feet 4 inches, 259 pounds. HEENT Exam: Mild anemia noted, not in respiratory distress. She is coherent. Neck: Supple. Chest: Bilateral air entry. Heart: Very distant heart sounds. Abdomen: Belly is soft. There is large ventral hernia noted on the right side of the abdomen. Extremities: Dry. Skin: With ulcer on the right upper leg, slowly healing. LABS: CBC: White cell count 7.0, hematocrit 29.1, platelet count 76. PT 17, INR 1.4. Sodium 142, potassium 3.2, chloride 116. BUN 15, creatinine 0.6, glucose 8.2, bilirubin 4.7. AST 35. Plasma lactate 3.1. Urine is positive for infection. Influenza screen negative. Urine cultures are negative. Blood cultures pending. IMAGING: Chest x-ray: Cardiomegaly. No pneumonia. ASSESSMENT AND PLAN: 1. A 64-year-old white female basically admitted to the hospital with altered mental status due to ammonia encephalopathy, elevated ammonia levels increasing the lactulose. The patient was on Xifaxan, not taking. 2. Deep venous thrombosis prophylaxis with Lovenox. 3. Slightly pancytopenia due to hypersplenism. Thrombocytopenia closely watched. 4. Cirrhosis due to nonalcoholic steatohepatitis. Continue on fluid restriction, daily weights, Aldactone. 5. Nausea. We will use Zofran. 6. Fever and right leg ulcer, healing. Currently she is on vancomycin and Zosyn. Will slowly localize the infection. 7. Acid reflux disease. We will use the Nexium. 8. Depression on Lexapro. 9. Large ventral hernia, stable. Repeat the labs in the morning: CBC, CMP, ammonia levels, LEVEL OF DOCUMENTATION: 35 minutes. cc: Lio Westfall MD
[2019-05-06] MEDS: NEXIUM IV SCH (12:56)
[2019-05-06] MEDS: VANCOMYCIN 2,000 MG in NS 500 ML IV SCH (18:34)
[2019-05-06] MEDS: XIFAXAN PO SCH (21:51)
[2019-05-07] MEDS: ZOSYN 3.375 GM in NS 50 ML IV SCH ×4 (05:40→23:15)
[2019-05-07] MEDS: TYLENOL PO PRN ×2 (05:47)
[2019-05-07] MEDS: VANCOMYCIN 2,000 MG in NS 500 ML IV SCH (06:38)
[2019-05-07 07:15] LABS: BASO# 0.04 X1000 (0.0-0.2); BASO% 0.9 % (0.0-0.8); EOS# 0.35 X1000 (0.0-0.7); EOS% 7.7 % (0.0-10.0); HEMATOCRIT 28.9 % (37.0-47.0); HEMOGLOBIN 9.8 g/dL (12.0-16.0); LYMPH# 1.28 X1000 (1.2-3.4); LYMPH% 28.1 % (20.5-51.1); MCH 32.9 PG (27-31); MCHC 33.9 g/dL (33-37); MONO# 0.32 X1000 (0.11-0.59); NEUT# 2.56 X1000 (1.4-6.5); NEUT% 56.3 % (42.2-75.2); PLT 77 X1000 (130-400); RBC 2.98 XMIL (4.2-5.4); RDW 14.5 % (11.5-14.5); WBC 4.55 X1000 (4.8-10.8)
[2019-05-07 07:31] LABS: AGAP 7; ALB/GLOB RATIO 0.7; ALBUMIN 2.1 g/dL (3.5-5.0); ALKALINE PHOSPHATASE 79 U/L (32-104); BUN 10 mg/dL (8-22); CALCIUM 8.6 mg/dL (8.8-10.2); CHLORIDE 113 mmol/L (98-107); COSMO 278; CREATININE 0.5 mg/dL (0.5-0.9); ESTIMATED GFR > 60; GLUCOSE 91 mg/dL (70-104); GOT 22 U/L (10-30); GPT 11 U/L (10-36); POTASSIUM 3.5 mmol/L (3.5-5.1); SODIUM 140 mmol/L (136-145); TCO2 20 mmol/L (25-35); TOTAL BILIRUBIN 2.58 mg/dL (0.20-1.00); TOTAL PROTEIN 5.3 g/dL (6.3-8.3)
[2019-05-07] MEDS: LOVENOX SUBQ SCH (08:44)
[2019-05-07] MEDS: LACTULOSE PO SCH ×2 (08:44→21:35)
[2019-05-07] MEDS: LASIX PO SCH (08:44)
[2019-05-07] MEDS: ICAR-C PLUS PO SCH (08:44)
[2019-05-07] MEDS: ALDACTONE PO SCH (08:44)
[2019-05-07] MEDS: XIFAXAN PO SCH ×2 (08:44→21:38)
[2019-05-07] MEDS: LEXAPRO PO SCH (08:44)
[2019-05-07] MEDS: NEXIUM IV SCH (12:31)
--- NOTE | 2019-05-07 13:56 | PROGRESS NOTE ---
DATE: 05/07/2019 SUBJECTIVE: Patient's mental status improved, anxious to go home. No nausea, no fever. PHYSICAL EXAMINATION: Temperature is 97 degrees, pulse 73. Vitals are stable.HEENT: Within normal limits. Neck: Supple. Chest: Clear. Heart: Sounds are regular. Belly: Soft, obese, nontender. INVESTIGATIONS: CBC: White cell count 4.5, hematocrit 29, platelets 77,000. Sodium 140, potassium 3.5, chloride 113, bilirubin 2.5, ammonia 63, albumin 2.1. Urine cultures are negative. ASSESSMENT AND PLAN: 1. Altered mental status due to ammonia encephalopathy. Continue on lactulose. 2. Cirrhosis due to nonalcoholic steatohepatitis. 3. Hypersplenism causing pancytopenia and continue on IV Lasix, lactulose and Xifaxan. Aldactone. DVT prophylaxis with Lovenox. Will check the labs in the morning, ammonia and CMP. LEVEL OF DOCUMENTATION: 25 minutes. cc: Lio Westfall MD
[2019-05-08] MEDS: ZOSYN 3.375 GM in NS 50 ML IV SCH (05:07)
[2019-05-08 07:06] VITALS: BP 125/45
[2019-05-08 07:35] LABS: BASO# 0.04 X1000 (0.0-0.2); BASO% 1.1 % (0.0-0.8); EOS# 0.33 X1000 (0.0-0.7); EOS% 8.8 % (0.0-10.0); HEMATOCRIT 30.2 % (37.0-47.0); HEMOGLOBIN 10.1 g/dL (12.0-16.0); LYMPH# 1.16 X1000 (1.2-3.4); MCH 32.4 PG (27-31); MCHC 33.4 g/dL (33-37); MCV 96.8 FL (81-99); MONO# 0.23 X1000 (0.11-0.59); MONO% 6.1 % (1.7-9.3); MPV 10.8 FL (7.4-10.4); NEUT# 1.98 X1000 (1.4-6.5); PLT 90 X1000 (130-400); RBC 3.12 XMIL (4.2-5.4); RDW 14.1 % (11.5-14.5); WBC 3.74 X1000 (4.8-10.8)
[2019-05-08 07:45] LABS: AGAP 5; ALB/GLOB RATIO 0.6; ALBUMIN 2.1 g/dL (3.5-5.0); ALKALINE PHOSPHATASE 77 U/L (32-104); BUN 8 mg/dL (8-22); CALCIUM 8.6 mg/dL (8.8-10.2); CHLORIDE 111 mmol/L (98-107); COSMO 275; CREATININE 0.5 mg/dL (0.5-0.9); ESTIMATED GFR > 60; GLUCOSE 87 mg/dL (70-104); GOT 23 U/L (10-30); GPT 12 U/L (10-36); POTASSIUM 3.8 mmol/L (3.5-5.1); SODIUM 139 mmol/L (136-145); TCO2 23 mmol/L (25-35); TOTAL BILIRUBIN 2.15 mg/dL (0.20-1.00); TOTAL PROTEIN 5.5 g/dL (6.3-8.3)
[2019-05-08] MEDS: ICAR-C PLUS PO SCH (08:12)
[2019-05-08] MEDS: LASIX PO SCH (08:12)
[2019-05-08] MEDS: ALDACTONE PO SCH (08:12)
[2019-05-08] MEDS: LACTULOSE PO SCH (08:12)
[2019-05-08] MEDS: XIFAXAN PO SCH (08:12)
[2019-05-08] MEDS: LEXAPRO PO SCH (08:12)
[2019-05-08] MEDS: LOVENOX SUBQ SCH (08:13)
--- NOTE | 2019-05-08 09:30 | EKG Report ---
Test Performed on : 05/05/2019 9:11:48 PM Test Reason : ED. No order in [place] Blood Pressure : / mmHG Vent. Rate : 092 BPM Atrial Rate : 092 BPM P-R Int : 182 ms QRS Dur : 092 ms QT Int : 410 ms P-R-T Axes : 032 000 016 degrees QTc Int : 507 ms Normal sinus rhythm. Cannot rule out Anterior infarct , age undetermined Abnormal ECG When compared with ECG of 15-OCT-2018 14:24, No significant change was found Unconfirmed Result
[2019-05-08] MEDS ORDERED: VANCOMYCIN 2 GM in NS 500 ML IV SCH (10:00)
--- NOTE | 2019-05-10 05:48 | DISCHARGE SUMMARY ---
ADMISSION DATE: 05/05/2019 DISCHARGE DATE: 05/08/2019 DISCHARGING DIAGNOSIS: Altered mental status due to metabolic encephalopathy. SECONDARY DIAGNOSES: 1. 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 2. Pancytopenia due to hypersplenism. 3. Large ventral hernia. 4. Sleep apnea. 5. Depression. 6. History of diverticulosis. 7. History of kidney stones on the left side. 8. B12 deficiency. 9. History of shingles on the right T10 distribution stable. BRIEF HISTORY: Please see the H and P that was done by hospitalist. In brief, she is a 63-year- old white female basically who came in the hospital with weakness and mental confusion due to ammonia encephalopathy associated with nausea. HOSPITAL COURSE: Initially, it was thought to be UTI. Patient was given IV vancomycin. The patient was given lactulose. Follow up ammonia level came down to 62. The rest of the hospital course was uneventful. LABORATORY DATA: CBC: White cell count 3.7, hematocrit 30, and platelets 90,000. Sodium 139, potassium 3.8, chloride 111, BUN 8, creatinine 0.5, calcium 8.6, and bilirubin 2.15. LFTs were normal. Blood cultures and urine cultures were negative. Influenza test was negative. The patient had pneumococcal vaccine 10/19/2018. Tdap 12/27/2018. MEDICATIONS: 1. Lexapro 10 mg daily. 2. Lasix 40 daily. 3. Icar C Plus 1 tablet daily. 4. Aldactone 50 daily. 5. Lactulose 30 p.o. b.i.d. FOLLOW UP: In my office in 2 weeks. cc: Lio Westfall MD
== END 2019-05-08 10:26 | disposition home or self-care (01) | DRG 442 ==
LOC: SUPCPDRO → ED 17:20 → SUATTDRO 21:58 → 3N 21:58
PROVIDERS: ADMIT Internal Medicine; ATTEND Internal Medicine

== ENCOUNTER 2019-06-24 12:34 | Inpatient (IN) ==
[2019-06-24] MEDS ORDERED: NS 1,000 ML IV ONE (12:45)
--- NOTE | 2019-06-24 14:00 | Diag Imaging Result Doc PS360 ---
CT HEAD W/O CONTRAST, CT MAXILLOFACIAL(SINUS) W/O CO - 06/24/2019 INDICATION: Head injury COMPARISON: Head CT 10/15/2018 FINDINGS: Head CT: The ventricles and sulci are normal in size and contour. No intracranial mass or hemorrhage. There is some stable mild patchy cerebral white matter chronic microvascular ischemia. There is a left forehead scalp contusion. No underlying skull fracture. Facial bones: The facial bones are intact and well mineralized. The sinuses, mastoids, and middle ears are clear. IMPRESSION: Small left forehead scalp contusion. No intracranial injury. No facial bone fracture. This exam was performed using automated exposure control, adjustment of mA or kV according to patient size, and/or use of iterative reconstruction technique Electronically signed by Randy Tony 06/24/2019 1:58 PM
--- NOTE | 2019-06-24 14:08 | EKG Report ---
Test Performed on : 06/24/2019 1:45:14 PM Test Reason : ams Blood Pressure : / mmHG Vent. Rate : 084 BPM Atrial Rate : 084 BPM P-R Int : 160 ms QRS Dur : 088 ms QT Int : 410 ms P-R-T Axes : 006 -13 011 degrees QTc Int : 484 ms Normal sinus rhythm. Minimal voltage criteria for LVH, may be normal variant Cannot rule out Anterior infarct (cited on or before 05-MAY-2019) Abnormal ECG When compared with ECG of 05-MAY-2019 21:11, (Unconfirmed) No significant change was found Unconfirmed Result
--- NOTE | 2019-06-24 14:11 | Diag Imaging Result Doc PS360 ---
CHEST-PORTABLE - 06/24/2019 INDICATION: AMS COMPARISON: 05/05/2019 FINDINGS: Stable cardiomegaly and pulmonary vascular congestion. No infiltrates or edema. No pneumothorax or pleural effusion. IMPRESSION: Cardiomegaly and pulmonary vascular congestion. Electronically signed by Randy Tony 06/24/2019 2:09 PM
[2019-06-24 14:23] LABS: BASO# 0.12 X1000 (0.0-0.2); BASO% 2.5 % (0.0-0.8); EOS# 0.18 X1000 (0.0-0.7); EOS% 3.7 % (0.0-10.0); HEMATOCRIT 39.6 % (37.0-47.0); HEMOGLOBIN 13.4 g/dL (12.0-16.0); LYMPH# 1.15 X1000 (1.2-3.4); LYMPH% 23.6 % (20.5-51.1); MCH 32.1 PG (27-31); MCHC 33.8 g/dL (33-37); MONO# 0.45 X1000 (0.11-0.59); MONO% 9.2 % (1.7-9.3); MPV 10.3 FL (7.4-10.4); NEUT# 2.98 X1000 (1.4-6.5); PLT 81 X1000 (130-400); RBC 4.17 XMIL (4.2-5.4); RDW 13.9 % (11.5-14.5); WBC 4.88 X1000 (4.8-10.8)
[2019-06-24 14:37] LABS: INR 1.38; PROTIME 17.2 Seconds (11.0-16.0)
[2019-06-24 14:38] LABS: PTT 36.9 Seconds (22.3-41.8)
[2019-06-24 14:44] LABS: AGAP 15; ALB/GLOB RATIO 0.9; ALBUMIN 3.1 g/dL (3.5-5.0); ALKALINE PHOSPHATASE 118 U/L (32-104); BUN 9 mg/dL (8-22); CALCIUM 9.9 mg/dL (8.8-10.2); CHLORIDE 109 mmol/L (98-107); CK PROFILE 50 U/L (24-173); COSMO 282; CREATININE 0.6 mg/dL (0.5-0.9); ESTIMATED GFR > 60; GLUCOSE 100 mg/dL (70-104); GOT 37 U/L (10-30); GPT 18 U/L (10-36); POTASSIUM 3.7 mmol/L (3.5-5.1); SODIUM 142 mmol/L (136-145); TCO2 18 mmol/L (25-35); TOTAL BILIRUBIN 3.23 mg/dL (0.20-1.00); TOTAL PROTEIN 6.5 g/dL (6.3-8.3)
[2019-06-24 15:00] LABS: URINE SOURCE CLEAN CATCH
[2019-06-24 15:17] LABS: BILIRUBIN URINE NEGATIVE (NEGATIVE); BLOOD URINE LARGE (NEGATIVE); COLOR YELLOW; GLUCOSE URINE NEGATIVE (NEGATIVE); KETONE URINE TRACE mg/dL (NEGATIVE); LEUKOCYTES URINE SMALL (NEGATIVE); NITRITE URINE NEGATIVE (NEGATIVE); PROTEIN URINE TRACE mg/dL (NEGATIVE); SP GRAVITY URINE 1.021; TURBIDITY URINE HAZY (CLEAR); UROBILINOGEN URINE 4 mg/dL (NORMAL)
[2019-06-24 15:23] LABS: UR AMPHETAMINES QUAL NONE DETECTED (NONE DETECT); UR BARBITUATES QUAL NONE DETECTED (NONE DETECT); UR BENZODIAZEPIN QUAL NONE DETECTED (NONE DETECT); UR CANNABINOIDS QUAL NONE DETECTED (NONE DETECT); UR COCAINE QUAL NONE DETECTED (NONE DETECT); UR METHADONE QUAL NONE DETECTED (NONE DETECT); UR OPIATES QUAL NONE DETECTED (NONE DETECT); UR OXYCODONE QUAL NONE DETECTED (NONE DETECT); UR PCP QUAL NONE DETECTED (NONE DETECT)
[2019-06-24 15:26] LABS: UR EPITHELIAL CELLS <10 /HPF (<10); URINE BACTERIA 1+ /HPF; URINE RBC TNTC /HPF (<10); URINE WBC 20-40 /HPF (<10)
[2019-06-24] MEDS ORDERED: ROCEPHIN 1 GM in NS 50 ML IV ONE (15:45)
[2019-06-24] MEDS ORDERED: LACTULOSE PO ONE (15:45)
--- NOTE | 2019-06-24 15:53 | PROVIDER DOCUMENTATION ---
This chart was entered by Arthur Malcolm Scribe, acting as scribe for Sav Younger MD. HPI-General Adult - General Chief Complaint: Altered Mental Status Stated Complaint: UTI Time Seen by Provider: 06/24/19 12:39 Source: patient, EMS Allergies/Adverse Reactions: Patient Allergies Allergy/AdvReac Type Severity Reaction Status Date / Time No Known Allergies Allergy Verified 05/05/19 18:45 Home Medications: Home Medication List Medication Instructions Recorded Confirmed Last Taken Type Escitalopram Oxalate [Lexapro] 10 mg PO DAILY #30 tab 03/04/18 05/05/19 05/05/19 Rx Furosemide [Lasix] 40 mg PO DAILY 12/22/18 05/05/19 05/05/19 History Iron,Carb/Vit C/Vit B12/Folic [Fe 1 tab PO DAILY 12/22/18 05/05/19 05/05/19 History C Plus Tablet] Spironolactone 50 mg PO DAILY 12/22/18 05/05/19 05/05/19 History Lactulose 30 ml PO BID #600 udc 03/24/19 05/05/19 05/05/19 Rx - History of Present Illness -Gen Adult Nature of Presenting Problems: 64 y/o F presents to the ED via EMS due to having an episode lasting approximately one hour at home of being incoherent. Per EMS upon their arrival patient oriented and responding appropriately. Patient has a known history of cirrhosis. Daughter concerned that patient may have an elevated ammonia level. Per EMS patient did have a fall x3-4 days ago but did not seek any medical attention. Patient denies any symptoms at present. Location of Pain/Injury: reports: none Onset/Duration: reports: just prior to arrival Timing: reports: gone now Review of Systems - Adult - REVIEW OF SYSTEMS - ADULT Constitutional: denies: chills, fever Eyes: reports: no symptoms reported Ears, Nose, Mouth & Throat: reports: no symptoms reported Cardiovascular: denies: chest pain, palpitations Respiratory: denies: cough, shortness of breath Gastrointestinal: denies: diarrhea, nausea, vomiting Genitourinary: reports: no symptoms reported Musculoskeletal: reports: no symptoms reported Integumentary: reports: no symptoms reported Neurological: denies: dizziness/vertigo, headache/migraines Psychiatric: reports: no symptoms reported Endocrine: reports: no symptoms reported Hematologic/Lymphatic: reports: no symptoms reported Allergic/Immunologic: reports: no symptoms reported All Other Systems: Reviewed and Negative Past History - Adult - PAST MEDICAL HISTORY-ADULT Review of Records: reports: Nursing Assessment Review, Medications Reviewed Major Childhood Illnesses: reports: denies history Cardiovascular: reports: CHF Respiratory: reports: denies history Gastrointestinal: reports: other (Cirrhosis) Obstetrical/Gynecological: reports: denies history Genitourinary: reports: denies history Musculoskeletal: reports: denies history Neurological: reports: CVA Endocrine/Immune: reports: denies history Other Conditions: reports: denies history - PRIOR SURGERIES/PROCEDURES Surgical/Procedure History: reports: cholecystectomy, hysterectomy, , tonsillectomy - IMMUNIZATION STATUS Childhood Immunizations: See Nurse Assessment Flu Vaccine: See Nurse Assessment - FAMILY HISTORY Family History: reviewed, not pertinent - SOCIAL HISTORY Smoking: denies Substance Use: denies Physical Exam-General - PHYSICAL EXAM-ADULT Initial Vital Signs Reviewed: Yes - CONSTITUTIONAL General Appearance: alert, no apparent distress - EYES Eyes: scleral icterus - HEAD, EARS, NOSE, MOUTH & THROAT HENMT: moist mucous membranes, other (left forehead hematoma) - NECK Neck: normal inspection - RESPIRATORY Respiratory: lungs clear, normal breath sounds, no respiratory distress, no accessory muscle use. negative: decreased breath sounds, accessory muscle use - CARDIOVASCULAR Cardiovascular: normal peripheral pulses, tachycardia. negative: irregularly irregular - GASTROINTESTINAL (ABDOMEN) Abdominal Exam: soft - MUSCULOSKELETAL Extremity: pedal edema (4+ bilateral) - SKIN Integumentary: warm/dry, ecchymosis (left side of face) - PSYCHIATRIC Psych/Mental Status: other (A&Ox2) Progress - PLAN OF CARE/RESULTS Result Diagrams: 06/24/19 14:05 06/24/19 14:05 - REASSESSMENT Reassessment #1 Time Reassessed: 15:52 Status: improving (given IVF, po lactulose, IV rocephin) - EKG 1 Time of EKG reading by physician:: 13:48 EKG Read and Signed by:: Sav Younger EKG Interpretation (*Must complete 3 of following elements*): Abnormal Rate: 84 Rhythm: normal sinus rhythm QRS: LVH ST Wave: non-specific ST changes - CT/MRI 1 CT Study: Head Impression: See EMR Report (CT HEAD W/O CONTRAST, CT MAXILLOFACIAL(SINUS) W/O CO - 06/24/2019 INDICATION: Head injury COMPARISON: Head CT 10/15/2018 FINDINGS: Head CT: The ventricles and sulci are normal in size and contour. No intracranial mass or hemorrhage. There is some stable mild patchy cerebral white matter chronic microvascular ischemia. There is a left forehead scalp contusion. No underlying skull fracture. Facial bones: The facial bones are intact and well mineralized. The sinuses, mastoids, and middle ears are clear. IMPRESSION: Small left forehead scalp contusion. No intracranial injury. No facial bone fracture. This exam was performed using automated exposure control, adjustment of mA or kV according to patient size, and/or use of itera tive reconstruction technique Electronically signed by Randy Tony 06/24/2019 1:58 PM 06/24/19 [id number] Interpreting Physician: Randy Tony MD Dictated Date/Time: 06/24/19 3941 cc: Sav Younger MD; Alberto Westfall MD) 2 CT Study: other (CT MAXILLOFACIAL(SINUS) W/O CO) Impression: See EMR Report (INDICATION: Head injury COMPARISON: Head CT 10/15/2018 FINDINGS: Head CT: The ventricles and sulci are normal in size and contour. No intracranial mass or hemorrhage. There is some stable mild patchy cerebral white matter chronic microvascular ischemia. There is a left forehead scalp contusion. No underlying skull fracture. Facial bones: The facial bones are intact and well mineralized. The sinuses, mastoids, and middle ears are clear. IMPRESSION: Small left forehead scalp contusion. No intracranial injury. No facial bone fracture. This exam was performed using automated exposure control, adjustment of mA or kV according to patient size, and/or use of iterative reconstruction technique Electronically signed by Randy Tony 06/24/2019 1:58 PM 06/24/19 1173 Interpreting Physician: Randy Tony MD Dictated Date/Time: 06/24/19 [id number] cc: Sav Younger MD; Alberto Westfall MD) - CONSULTS/PCP/HOSPITALIST Notification #1 *Consult/PCP/Hospitalist*: Jane iron setter for [place] Time Discussed: 15:51 Consult Disposition: Will see in ED, Admit Departure - Departure Date of Disposition Decision: 06/24/19 Time of Disposition Decision: 15:52 DIAGNOSIS: Hepatic encephalopathy syndrome Altered mental status, unspecified Qualifiers: Altered mental status type: transient alteration of awareness Qualified Cod e(s): R40.4 - Transient alteration of awareness UTI (urinary tract infection) Qualifiers: Urinary tract infection type: acute cystitis Hematuria presence: with hematuria Qualified Code(s): N30.01 - Acute cystitis with hematuria Contusion of face Qualifiers: Encounter type: initial encounter Qualified Code(s): S00.83XA - Contusion of other part of head, initial encounter Fall as cause of accidental injury at home as place of occurrence Qualifiers: Encounter type: initial encounter Qualified Code(s): W19.XXXA - Unspecified fall, initial encounter; Y92.009 - Unspecified place in unspecified non- institutional (private) residence as the place of occurrence of the external cause Disposition: ADMITTED INPATIENT 09 Certified Medical Emergency: Emergent Condition: Stable Referrals and Follow-Ups: Alberto Westfall MD [Primary Care Provider] - - Critical Care Note This patient required my direct & personal management of CC.: No Attestation - Physician/ MANE Attestation Patient care was provided by Advanced Practice Provider:: No The physician spent face to face time with patient:: Yes Advanced Practice Provider documentation review:: Supervising physician onsite and consulted in the evaluation and care of this patient. The physician did have a face to face encounter with the patient. This chart was documented by the indicated scribe, (Arthur Malcolm Scribadrián) and accurately reflects the services I performed and decisions made by me, Sav Younger MD, as attested by the provider's signature.
[2019-06-24] MEDS ORDERED: TYLENOL PO PRN (15:54)
[2019-06-24] MEDS ORDERED: ZOFRAN PO PRN (15:54)
[2019-06-24 15:55] LABS: URINE CASTS NONE SEEN; URINE YEAST NONE SEEN
[2019-06-24 15:56] LABS: URINE CRYSTALS NONE SEEN
[2019-06-24 16:27] LABS: ALLEN TEST YES; BE -2.3 mmoll (-3.0-3.0); BLOOD TYPE ARTERIAL; HCO3-(ACT) 23.1 mmoll (20.0-26.0); O2(CT) 15.2 mL/dL (15.0-23.0); PCO2(98.6) 30 mmHg (35-45); PO2(98.6) 89 mmHg (60-100); SAMPLE BLOOD; SAO2 98.5 % (95.0-100.0); THB 11.3 g/dL (11.5-17.4); pH(98.6) 7.45 (7.35-7.45)
[2019-06-24 16:33] LABS: MODALITY ROOM AIR
--- NOTE | 2019-06-24 20:39 | HISTORY AND PHYSICAL ---
CHIEF COMPLAINT: Confusion. HISTORY OF PRESENT ILLNESS: The patient is a 64-year-old, white female, followed by Dr. Corey Westfall. She presents to the emergency room with confusion. Apparently, she suffered a fall at home on 06/21/2019. She says she simply tripped and she banged her left face and head area. She has had some confusion starting around that time or the day after, by report. No one is available with her in the room at present. The patient suffers from cirrhosis of the liver associated with CASANOVA and her ammonia level is over 100, likely representing hepatic encephalopathy. MEDICATIONS: Prior to admission are Lexapro 10 mg p.o. daily, Lasix 40 mg p.o. daily, Icar-C one p.o. daily, Aldactone 50 mg p.o. daily, lactulose 30 mL p.o. b.i.d., but patient admits she has not been taking her lactulose the past several days. When asked why, the patient says she just does not. ALLERGIES: NKDA. PAST MEDICAL HISTORY: 1. Cirrhosis secondary to CASANOVA. 2. Pancytopenia secondary to hypersplenism. 3. Large ventral hernia. 4. Obstructive sleep apnea. 5. Depression. 6. Diverticulosis. 7. History of kidney stones. 8. B12 deficiency. 9. History of cervical cancer. PAST SURGICAL HISTORY: 1. section. 2. Hysterectomy. 3. Cholecystectomy. 4. Tonsillectomy. 5. Right cataract surgery. FAMILY HISTORY: Notable for CAD in her father. SOCIAL HISTORY: [place] patient [place] in the local area. She lives with her daughter who helps in her care. She is a nonsmoker, nondrinker. No illicit drug use. REVIEW OF SYSTEMS: Negative, except as above. PHYSICAL EXAMINATION: VITAL SIGNS: Afebrile, pulse 90, respirations 20, blood pressure 153/75, O2 saturation on room air 99%. GENERAL: [id number] obesity noted. Very large legs. SKIN: There is some dark discoloration over the lower extremities. No skin breakdown, although there is prominent thickened skin along the feet and ankle areas, and very elongated toenails that are unkempt. Prominent bruising over the left forehead and face area. Mild swelling about the left orbit. HEENT: Right cataract changes noted. EOMI. Sclerae anicteric. OP, no redness. Slightly dry mucous membranes. Tongue midline. NECK: No LA, TMG, JVD, or bruits. CV: RRR without murmur. LUNGS: CTA. BACK: No point tenderness. ABDOMEN: Very protuberant. Ventral hernia is prominent without tenderness. Nontender. No definite major ascites identified, but abdomen is very large. BREASTS/PELVIC/RECTAL: Deferred. EXTREMITIES: Legs are quite large. She has 2+ edema. NEUROLOGIC: Cranial nerves 2-12 are intact. She moves all extremities well. No major confusion identified. No asterixis. LABORATORY AND DIAGNOSTIC DATA: White count 4.88, hemoglobin 13.4, hematocrit 39.6, MCV 95, platelets 81,000, neutrophils 61, lymphocytes 23, monocytes 9. PT 17.2, INR 1.38, PTT 36.9. ABG on room air reveals pH 7.48, pCO2 of 30, PO2 of 89, HC03 of 23, O2 saturation 98.5, lactate 1.8 on the ABG. Sodium 142, potassium 3.7, chloride 109, CO2 of 18, BUN 9, creatinine 0.6, glucose 100, calcium 9.9. Total bilirubin 3.23, AST 37, ALT 18, alkaline phosphatase 118, ammonia level 102, whereas in April at her hospitalization then, it was 44. Total CK 50. Troponin less than 0.01. Total protein 6.5, albumin 3.1 plasma lactate 2.8, not on ABG. Urinalysis shows trace ketones, large blood, negative nitrite, negative bilirubin, small leukocytes, WBCs 20 to 40, too- [id number] RBCs, less than 10 epithelial cells, 1+ bacteria. This is a clean catch specimen. Blood cultures x2 have been obtained. Chest x-ray shows cardiomegaly and some pulmonary vascular congestion. No infiltrates or edema. No pleural effusion. EKG shows sinus rhythm, possible LVH. No particular change in the EKG when compared to the past EKGs. CT scan of the head shows small left forehead scalp contusion, otherwise negative. Maxillofacial CT negative, except for the scalp contusion. ASSESSMENT: 1. Mental status change thought related to hepatic encephalopathy. 2. Cirrhosis of liver secondary to nonalcoholic steatohepatitis. 3. Fall thought related to #1. 4. Contusion to the left scalp and left face area secondary to mechanical fall. 5. Morbid obesity. 6. Pancytopenia secondary to hypersplenism. 7. Large ventral hernia, asymptomatic. 8. Obstructive sleep apnea. 9. Depression. 10. History of diverticulosis. 11. B12 deficiency. 12. Urinary tract infection. PLAN: We will admit the patient, give her lactulose t.i.d. and Xifaxan b.i.d. Obtain urine culture and blood culture. Sepsis protocol has been initiated by the ER staff. She received some fluids, 1 L bolus in the emergency room, and will continue her Lasix and Aldactone. She has received Rocephin 1 g in the emergency room for UTI, will continue that and follow urine culture. We will follow neurological status closely and keep her at strict bed rest. cc: MD Lio Betancourt MD
[2019-06-24] MEDS: LACTULOSE PO SCH (21:34)
[2019-06-24] MEDS: XIFAXAN PO SCH (21:34)
[2019-06-25 05:31] LABS: BASO# 0.07 X1000 (0.0-0.2); BASO% 1.7 % (0.0-0.8); EOS# 0.34 X1000 (0.0-0.7); HEMATOCRIT 31.5 % (37.0-47.0); HEMOGLOBIN 10.7 g/dL (12.0-16.0); LYMPH# 1.65 X1000 (1.2-3.4); LYMPH% 38.9 % (20.5-51.1); MCH 32.2 PG (27-31); MCV 94.9 FL (81-99); MONO# 0.45 X1000 (0.11-0.59); MONO% 10.6 % (1.7-9.3); MPV 10.7 FL (7.4-10.4); NEUT# 1.73 X1000 (1.4-6.5); NEUT% 40.8 % (42.2-75.2); PLT 76 X1000 (130-400); RBC 3.32 XMIL (4.2-5.4); RDW 13.7 % (11.5-14.5); WBC 4.24 X1000 (4.8-10.8)
[2019-06-25 06:06] LABS: AGAP 11; ALB/GLOB RATIO 0.9; ALBUMIN 2.4 g/dL (3.5-5.0); ALKALINE PHOSPHATASE 91 U/L (32-104); BUN 7 mg/dL (8-22); CALCIUM 8.6 mg/dL (8.8-10.2); CHLORIDE 115 mmol/L (98-107); COSMO 286; CREATININE 0.4 mg/dL (0.5-0.9); ESTIMATED GFR > 60; GLUCOSE 89 mg/dL (70-104); GOT 27 U/L (10-30); GPT 13 U/L (10-36); POTASSIUM 3.2 mmol/L (3.5-5.1); SODIUM 145 mmol/L (136-145); TCO2 19 mmol/L (25-35); TOTAL BILIRUBIN 2.06 mg/dL (0.20-1.00)
[2019-06-25 06:16] LABS: BANDS 1 % (0-1); EOS 7 % (1-10); LYMPHS 43 % (21-51); MONO 4 % (1-9); SEGS 45 % (42-75)
[2019-06-25] MEDS: ICAR-C PLUS PO SCH (10:17)
[2019-06-25] MEDS: LEXAPRO PO SCH (10:17)
[2019-06-25] MEDS: LACTULOSE PO SCH ×3 (10:17→20:25)
[2019-06-25] MEDS: XIFAXAN PO SCH ×2 (10:17→20:25)
[2019-06-25] MEDS: LASIX PO SCH (10:17)
[2019-06-25] MEDS: ALDACTONE PO SCH (10:18)
[2019-06-25] MEDS ORDERED: KLOR-CON PO ONE (10:36)
[2019-06-25] MEDS: PEPCID PO SCH (12:12)
[2019-06-25] MEDS: MYCOSTATIN POWDER TOP SCH ×2 (12:13→20:25)
--- NOTE | 2019-06-25 12:16 | PROGRESS NOTE ---
DATE: 06/25/2019 SUBJECTIVE: Patient feeling better overall. She is anxious to be able to get up. OBJECTIVE: Vital Signs: Afebrile, pulse 94, respirations 20, blood pressure 137/63, O2 saturation on room air 100%. Cardiovascular: Regular rate and rhythm. Lungs: Clear. Abdomen: Very protuberant. Ventral hernia noted. Extremities: Large legs. There is some edema, nonpitting. There is some grime at the feet and toes and maybe some yeast in the groin area. Neurologic: Cranial nerves are intact. She moves all extremities well. Alert and oriented x3. No asterixis. LABORATORY DATA: Shows sodium 145, potassium 3.2, chloride 115, CO2 of 19, BUN 7, creatinine 0.4, glucose 89, total bilirubin down to 2.06, AST 27, ALT 13, alkaline phosphatase 91. Ammonia level down from 102 to 73, total protein 5.0, albumin 2.4, plasma lactate 3.8. Urine culture and blood cultures are in progress, are negative thus far. ASSESSMENT: 1. Hepatic encephalopathy, improving. 2. Mental status change thought related to #1, much improved. 3. 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 4. Fall, thought related to her encephalopathy. 5. Contusion to the left scalp and left face with some discoloration, improving. 6. Morbid obesity. 7. Pancytopenia secondary to hypersplenism. 8. Asymptomatic large ventral hernia. 9. Obstructive sleep apnea. 10. Depression. 11. Diverticulosis. 12. B12 deficiency. 13. Urinary tract infection. PLAN: Continue IV antibiotics in the form of Rocephin. Continue the Xifaxan and lactulose. We are going to bathe her feet and legs especially and give her skin care vigorously. We will apply Mycostatin powder to the areas of yeast per nursing as they are concerned about this. Will allow the patient to get up with assistance and get her up in a chair twice a day. Place her on prophylactic Pepcid. Continue her Icar C, Lasix and Aldactone. Follow her ammonia, electrolytes and CBC closely. Repeat those in the morning. cc: MD Lio Betancourt MD MTDD
[2019-06-25] MEDS: ROCEPHIN 1 GM in NS 50 ML IV SCH (15:58)
[2019-06-26 05:45] LABS: BASO# 0.07 X1000 (0.0-0.2); BASO% 1.5 % (0.0-0.8); EOS# 0.35 X1000 (0.0-0.7); EOS% 7.7 % (0.0-10.0); HEMATOCRIT 34.1 % (37.0-47.0); HEMOGLOBIN 11.7 g/dL (12.0-16.0); LYMPH# 1.74 X1000 (1.2-3.4); LYMPH% 38.2 % (20.5-51.1); MCH 32.4 PG (27-31); MCHC 34.3 g/dL (33-37); MCV 94.5 FL (81-99); MONO# 0.52 X1000 (0.11-0.59); MONO% 11.4 % (1.7-9.3); MPV 10.7 FL (7.4-10.4); NEUT# 1.88 X1000 (1.4-6.5); NEUT% 41.2 % (42.2-75.2); PLT 84 X1000 (130-400); RBC 3.61 XMIL (4.2-5.4); RDW 13.8 % (11.5-14.5); WBC 4.56 X1000 (4.8-10.8)
[2019-06-26 06:02] LABS: AGAP 11; BUN 5 mg/dL (8-22); CALCIUM 8.9 mg/dL (8.8-10.2); CHLORIDE 112 mmol/L (98-107); COSMO 282; CREATININE 0.5 mg/dL (0.5-0.9); ESTIMATED GFR > 60; GLUCOSE 88 mg/dL (70-104); MAGNESIUM 1.8 mg/dL (1.5-2.7); POTASSIUM 3.2 mmol/L (3.5-5.1); SODIUM 143 mmol/L (136-145); TCO2 20 mmol/L (25-35)
[2019-06-26] MEDS ORDERED: KLOR-CON PO ONE (08:15)
[2019-06-26] MEDS: LACTULOSE PO SCH ×3 (09:45→20:19)
[2019-06-26] MEDS: PEPCID PO SCH (09:45)
[2019-06-26] MEDS: KLOR-CON PO SCH (09:46)
[2019-06-26] MEDS: XIFAXAN PO SCH ×2 (09:46→20:19)
[2019-06-26] MEDS: ICAR-C PLUS PO SCH (09:46)
[2019-06-26] MEDS: ALDACTONE PO SCH (09:46)
[2019-06-26] MEDS: MYCOSTATIN POWDER TOP SCH ×2 (09:46→20:21)
[2019-06-26] MEDS: LASIX PO SCH (09:46)
[2019-06-26] MEDS: LEXAPRO PO SCH (09:46)
[2019-06-26] MEDS: DIFLUCAN PO SCH (09:53)
[2019-06-26] MEDS: ROCEPHIN 1 GM in NS 50 ML IV SCH (16:46)
--- NOTE | 2019-06-26 21:35 | PROGRESS NOTE ---
DATE: 06/26/2019 SUBJECT: A 64-year-old white female was admitted to the hospital over the weekend by Dr. Lara with altered mental status, UTI, infection in the right side of the abdomen along with a fall with injury to the left side of the head. Interval history was reviewed. PAST MEDICAL HISTORY: Reviewed. PAST SURGICAL HISTORY: Reviewed. MEDICINES: Reviewed. ALLERGIES: Not known. PHYSICAL EXAM: Temperature is 97.9 degrees, pulse 79, blood pressure is 132/65.HEENT: Large bruise noted on the left side of the skull. Neck: Supple. No lymphadenopathy. Chest: Bilateral air entry. Distant heart sounds. Belly is soft. Huge ventral hernia on the right side of the abdomen noted with underlying a fungal infection and cellulitis. Extremities: Lymphedema noted. No obvious neurological deficits. No asterixis noted. INVESTIGATIONS: CBC. White cell count 4.5, hematocrit 34.1, platelet 84,000. Sodium 143, potassium 3.2, chloride 112 and BUN 5, creatinine 0.5, glucose 88. LFTs were coming down. Ammonia came down to 51. Urinalysis positive for infection and urine cultures gram-negative bernadine. Blood cultures were negative. ASSESSMENT AND PLAN: 1. Head injury. Neurological exam stable. CT head is negative. 2. Nonalcoholic steatohepatitis with alcohol cirrhosis and thrombocytopenia stable, due to splenomegaly. 3. Ammonia encephalopathy. Continue on lactulose and Xifaxan. Better. 4. Cellulitis of the abdomen with fungal infection. Continue on Diflucan and nystatin. 5. Depression on Lexapro. 6. Gastrointestinal prophylaxis with Pepcid. 7. History of headaches, stable. Continue neurological exam. 8. Urinary tract infection, cellulitis, IV ceftriaxone. Continue fluid restrictions and daily weights. Follow up on urine cultures. LEVEL OF DOCUMENTATION: 30 minutes. cc: Lio Westfall MD
[2019-06-27] MEDS: ALDACTONE PO SCH (10:17)
[2019-06-27] MEDS: ICAR-C PLUS PO SCH (10:17)
[2019-06-27] MEDS: DIFLUCAN PO SCH (10:17)
[2019-06-27] MEDS: LACTULOSE PO SCH ×3 (10:17→20:45)
[2019-06-27] MEDS: MYCOSTATIN POWDER TOP SCH ×2 (10:17→20:47)
[2019-06-27] MEDS: LASIX PO SCH (10:18)
[2019-06-27] MEDS: PEPCID PO SCH (10:18)
[2019-06-27] MEDS: LEXAPRO PO SCH (10:18)
[2019-06-27] MEDS: KLOR-CON PO SCH (10:18)
[2019-06-27] MEDS: XIFAXAN PO SCH ×2 (10:30→20:45)
[2019-06-27] MEDS: ROCEPHIN 1 GM in NS 50 ML IV SCH (15:16)
--- NOTE | 2019-06-27 23:28 | PROGRESS NOTE ---
DATE: 06/27/2019 SUBJECTIVE: The patient is a little better and headaches are improving. No focal symptoms. OBJECTIVE: vital signs: Temperature 98 degrees, pulse is 85, blood pressure is stable. HEENT: Bruising on the left side noted. Chest: Clear. Heart: Sounds are regular. Abdomen: Belly is soft, nontender. Huge ventral hernia with macerated skin and redness noted. INVESTIGATIONS: Ammonia level 51. Urine cultures is E coli. Blood cultures are ESBL negative, sensitive to cefazolin. ASSESSMENT AND PLAN: 1. History of head injury. In light of thrombocytopenia, continue neuro checks. No localizing signs noted. 2. 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 3. Thrombocytopenia. 4. Splenomegaly. 5. Urinary tract infection. Continue on IV ceftriaxone. 6. Ammonia encephalopathy, improving with lactulose and Xifaxan. 7. Hypokalemia, on potassium. 8. Yeast infection on Diflucan and nystatin. 9. Gastrointestinal prophylaxis with Pepcid. 10. Depression, on Lexapro. Continue present treatment and if she continues to improve we will continue to observe for next 48 hours and discharge. LEVEL OF DOCUMENTATION: 25 minutes. cc: Lio Westfall MD
[2019-06-28] MEDS: LACTULOSE PO SCH ×3 (10:57→20:27)
[2019-06-28] MEDS: KLOR-CON PO SCH (10:57)
[2019-06-28] MEDS: XIFAXAN PO SCH ×2 (10:57→20:27)
[2019-06-28] MEDS: DIFLUCAN PO SCH (10:57)
[2019-06-28] MEDS: PEPCID PO SCH (10:57)
[2019-06-28] MEDS: ICAR-C PLUS PO SCH (10:58)
[2019-06-28] MEDS: LEXAPRO PO SCH (10:58)
[2019-06-28] MEDS: ALDACTONE PO SCH (10:58)
[2019-06-28] MEDS: LASIX PO SCH (10:58)
[2019-06-28] MEDS: MYCOSTATIN POWDER TOP SCH ×2 (11:11→20:27)
[2019-06-28] MEDS: ROCEPHIN 1 GM in NS 50 ML IV SCH (17:10)
[2019-06-29 05:23] LABS: BASO# 0.03 X1000 (0.0-0.2); BASO% 0.8 % (0.0-0.8); HEMATOCRIT 33.9 % (37.0-47.0); HEMOGLOBIN 11.1 g/dL (12.0-16.0); LYMPH# 1.53 X1000 (1.2-3.4); MCH 32.3 PG (27-31); MCHC 32.7 g/dL (33-37); MCV 98.5 FL (81-99); MONO% 10.7 % (1.7-9.3); MPV 11.4 FL (7.4-10.4); NEUT# 1.47 X1000 (1.4-6.5); NEUT% 39.5 % (42.2-75.2); PLT 87 X1000 (130-400); RBC 3.44 XMIL (4.2-5.4); RDW 14.2 % (11.5-14.5); WBC 3.73 X1000 (4.8-10.8)
[2019-06-29 05:53] LABS: AGAP 12; BUN 6 mg/dL (8-22); CALCIUM 8.8 mg/dL (8.8-10.2); CHLORIDE 107 mmol/L (98-107); COSMO 270; CREATININE 0.5 mg/dL (0.5-0.9); ESTIMATED GFR > 60; GLUCOSE 77 mg/dL (70-104); POTASSIUM 4.1 mmol/L (3.5-5.1); SODIUM 137 mmol/L (136-145); TCO2 18 mmol/L (25-35)
--- NOTE | 2019-06-29 07:13 | PROGRESS NOTE ---
DATE: 06/28/2019 SUBJECTIVE: The patient is getting better. No headaches. Small hematoma on the left frontal area noted. No neurological symptoms and signs. OBJECTIVE: Temperature is 98 degrees. Vitals are stable.Chest: Clear. Heart: Sounds are regular. Abdomen: Belly is soft. Obese. Large ventral hernia noted. Cellulitis over the belly is improving. LABORATORY: No labs obtained. ASSESSMENT AND PLAN: 1. Escherichia coli urinary tract infection. IV antibiotics. Yeast infection underneath the ventral hernia on the right side. Continue on nystatin and Diflucan. 2. Ammonia encephalopathy on lactulose and naproxen. 3. We will repeat the labs in the morning. If stable, will discharge in the morning with outpatient antibiotics. 4. Out of the bed with physical therapy. LEVEL OF DOCUMENTATION: 25 minutes. cc: Lio Westfall MD
[2019-06-29 08:23] VITALS: BP 119/51
[2019-06-29] MEDS: KLOR-CON PO SCH (09:00)
[2019-06-29] MEDS: XIFAXAN PO SCH (09:00)
[2019-06-29] MEDS: PEPCID PO SCH (09:00)
[2019-06-29] MEDS: LACTULOSE PO SCH (09:00)
[2019-06-29] MEDS: LASIX PO SCH (09:00)
[2019-06-29] MEDS: ICAR-C PLUS PO SCH (09:00)
[2019-06-29] MEDS: LEXAPRO PO SCH (09:00)
[2019-06-29] MEDS: DIFLUCAN PO SCH (09:00)
[2019-06-29] MEDS: ALDACTONE PO SCH (09:00)
[2019-06-29] MEDS: MYCOSTATIN POWDER TOP SCH (09:01)
[2019-06-29] MEDS ORDERED: FLU VACCINE IM ONE (09:40)
--- NOTE | 2019-07-02 08:01 | DISCHARGE SUMMARY ---
ADMISSION DATE: 06/24/2019 DISCHARGE DATE: 06/29/2019 DISCHARGING DIAGNOSIS: Altered mental status due to metabolic encephalopathy due to ammonia. SECONDARY DIAGNOSES: 1. Cirrhosis secondary to nonalcoholic steatohepatitis. 2. Pancytopenia due to hypersplenism. 3. Large ventral hernia. 4. Urinary tract infection with Escherichia coli. 5. Chronic lymphedema of both legs. 6. Sleep apnea. 7. Depression. 8. Diverticulosis. 9. B12 deficiency. 10. History of kidney stones. 11. Yeast infection. 12. Cellulitis underneath the large ventral hernia on the right side of the abdomen. BRIEF HISTORY: Please see the H and P that was done by Dr. Lara. In brief, she is a 64-year- old, obese, white female with above the problems, who came in with confusion, had a fall, sustained injury to the left side of the head. In the emergency room, the patient has extensive bruising on the left side of the face, with a small hematoma noted. CT head showed small left forehead scalp contusion. No intracranial injury. Maxillofacial CT: No facial bone fracture identified. The patient has elevated ammonia levels, for which the patient was given lactulose and Xifaxan. She also had UTI and cellulitis of the abdomen with yeast infection, for which IV ceftriaxone was given. She was also given nystatin powder and Diflucan. The patient slowly came back to the baseline. She was able to ambulate with assistance. The patient was discharged home in a stable condition. LABORATORY DATA: Labs at the time of discharge are as follows. CBC: White cell count 3.7, hematocrit 33.9, platelets 87,000. Sodium 137, potassium 4.1, BUN 6, creatinine 0.5, glucose 77, calcium 8.8, total bilirubin 2.0. Ammonia level came down to 51. Slightly elevated LFTs. Urine toxicology screen was negative. Urine cultures positive for Escherichia coli, sensitive to Levaquin. Blood cultures were negative. DISCHARGE INSTRUCTIONS: The patient was discharged home with the following instructions: 1. Flu vaccine, 06/29/2019. 2. Pneumococcal vaccine, 10/19/2018. 3. Tdap, 12/27/2018. 4. Continue weight loss, fluid restrictions, daily weights. Discharge weight is 254 pounds. DISCHARGE MEDICATIONS: Lexapro 10 daily, Lasix 40 daily, Icar C Plus 1 tablet daily, Aldactone 50 daily, lactulose 30 mg p.o. b.i.d., Levaquin 500 daily for 10 days. FOLLOWUP: Follow up in my office in 10 days. Continue the nystatin powder underneath the right side of the abdomen, care of the skin. cc: Lio Westfall MD
== END 2019-06-29 13:51 | disposition home or self-care (01) | DRG 442 ==
LOC: SUPCPDRO → ED 12:34 → EDIPHOLD 16:34 → 1N 18:54
PROVIDERS: ADMIT Internal Medicine; ATTEND Internal Medicine

== ENCOUNTER 2019-07-30 17:04 | Inpatient (IN) ==
[2019-07-30] MEDS ORDERED: NS 1,000 ML IV ONE (17:39)
[2019-07-30 18:29] LABS: BASO# 0.02 X1000 (0.0-0.2); BASO% 0.3 % (0.0-0.8); EOS% 1.4 % (0.0-10.0); HEMATOCRIT 32.7 % (37.0-47.0); IMM GRAN# 0.03 X1000 (0.0-0.04); IMM GRAN% 0.4 % (0.0-0.5); LYMPH# 0.76 X1000 (1.2-3.4); LYMPH% 10.4 % (20.5-51.1); MCH 32.8 PG (27-31); MCHC 33.6 g/dL (33-37); MCV 97.6 FL (81-99); MONO% 8.2 % (1.7-9.3); MPV 12.4 FL (7.4-10.4); NEUT# 5.78 X1000 (1.4-6.5); NEUT% 79.3 % (42.2-75.2); PLT 55 X1000 (130-400); RBC 3.35 XMIL (4.2-5.4); RDW 13.6 % (11.5-14.5); WBC 7.29 X1000 (4.8-10.8)
[2019-07-30 18:38] LABS: INR 1.36
[2019-07-30 18:39] LABS: PTT 40.4 Seconds (22.3-41.8)
--- NOTE | 2019-07-30 18:41 | Diag Imaging Result Doc PS360 ---
EXAM: CHEST-1 VIEW INDICATION: poss. sepsis TECHNIQUE: One view COMPARISON: 06/24/2019 FINDINGS: Inspiration is suboptimal. Central vasculature appears mildly prominent suggesting mild pulmonary venous congestion. This is similar to the previous study. The lungs are grossly clear, otherwise. There is no discrete pleural fluid collection or pneumothorax. Cardiac silhouette is mildly prominent but stable. IMPRESSION: Mildly prominent heart and suggestion of mild pulmonary venous congestion. Electronically signed by Riley Purdy 07/30/2019 6:39 PM
[2019-07-30 18:46] LABS: AGAP 10; ALB/GLOB RATIO 0.7; ALBUMIN 2.2 g/dL (3.5-5.0); ALKALINE PHOSPHATASE 94 U/L (32-104); BUN 30 mg/dL (8-22); CALCIUM 9.6 mg/dL (8.8-10.2); CHLORIDE 102 mmol/L (98-107); CK PROFILE 74 U/L (24-173); COSMO 275; CREATININE 0.9 mg/dL (0.5-0.9); ESTIMATED GFR > 60; GLUCOSE 104 mg/dL (70-104); GOT 32 U/L (10-30); GPT 15 U/L (10-36); POTASSIUM 3.6 mmol/L (3.5-5.1); SODIUM 134 mmol/L (136-145); TCO2 22 mmol/L (25-35); TOTAL BILIRUBIN 5.11 mg/dL (0.20-1.00); TOTAL PROTEIN 5.4 g/dL (6.3-8.3)
--- NOTE | 2019-07-30 19:03 | PROVIDER DOCUMENTATION ---
This chart was entered by Thelma Yu Scribe, acting as scribe for Gael Montgomery DO. HPI-General Adult - General Source: patient - History of Present Illness -Gen Adult Nature of Presenting Problems: 64 y/o female presents to the ED with complaint of increasing right leg pain and swelling. The patient states physical therapy home health measured her leg and right was 10 cm. larger than left and advised her to come to the ED. The patient also states brown colored urine and she is concerned for UTI. Denies chest pain, SOB, or history of previous DVT and she is not currently on blood thinners. Location of Pain/Injury: reports: lower extremity (right) Quality of Pain: reports: fullness Onset/Duration: reports: gradual Timing: reports: still present Modifying Factors: improves with: nothing Associated Symptoms: denies: chest pain, fever/chills, shortness of breath, vomiting <Gael Montgomery - Last Filed: 07/30/19 19:02> <Darrell Villegas - Last Filed: 07/30/19 20:57> - General Chief Complaint: SEPSIS ALERT - D Stated Complaint: LEG SWELLING/PAIN Time Seen by Provider: 07/30/19 17:30 Allergies/Adverse Reactions: Patient Allergies Allergy/AdvReac Type Severity Reaction Status Date / Time No Known Allergies Allergy Verified 05/05/19 18:45 Home Medications: Home Medication List Medication Instructions Recorded Confirmed Last Taken Type Escitalopram Oxalate [Lexapro] 10 mg PO DAILY #30 tab 03/04/18 07/30/19 05/05/19 Rx Furosemide [Lasix] 40 mg PO DAILY 12/22/18 07/30/19 06/22/19 15:00 History Iron,Carb/Vit C/Vit B12/Folic [Fe 1 tab PO DAILY 12/22/18 07/30/19 05/05/19 History C Plus Tablet] Spironolactone 50 mg PO DAILY 12/22/18 07/30/19 05/05/19 History Lactulose 30 ml PO BID #600 [facility] 03/24/19 07/30/19 05/05/19 Rx Review of Systems - Adult - REVIEW OF SYSTEMS - ADULT Constitutional: denies: chills, fever, weight loss Eyes: reports: no symptoms reported Ears, Nose, Mouth & Throat: reports: no symptoms reported Cardiovascular: denies: chest pain, palpitations, syncope Respiratory: denies: hemoptysis, shortness of breath, wheezing Gastrointestinal: reports: no symptoms reported Genitourinary: reports: no symptoms reported Musculoskeletal: reports: other (right leg edema and pain). denies: joint pain, joint swelling Integumentary: reports: no symptoms reported Neurological: reports: no symptoms reported Psychiatric: reports: no symptoms reported Endocrine: reports: no symptoms reported Hematologic/Lymphatic: reports: no symptoms reported Allergic/Immunologic: reports: no symptoms reported All Other Systems: Reviewed and Negative <Gael Montgomery - Last Filed: 07/30/19 19:02> Past History - Adult - PAST MEDICAL HISTORY-ADULT Review of Records: reports: Old Records Reviewed, Nursing Assessment Review, Medications Reviewed Major Childhood Illnesses: reports: denies history Cardiovascular: reports: denies history Respiratory: reports: denies history Gastrointestinal: reports: denies history Obstetrical/Gynecological: reports: denies history Genitourinary: reports: denies history Musculoskeletal: reports: denies history Neurological: reports: denies history Endocrine/Immune: reports: denies history Other Conditions: reports: denies history - IMMUNIZATION STATUS Childhood Immunizations: See Nurse Assessment Flu Vaccine: See Nurse Assessment - FAMILY HISTORY Family History: reviewed, not pertinent <Gael Montgomery - Last Filed: 07/30/19 19:02> Physical Exam-General - PHYSICAL EXAM-ADULT Initial Vital Signs Reviewed: Yes - CONSTITUTIONAL General Appearance: alert, no apparent distress, obese (morbidly) - HEAD, EARS, NOSE, MOUTH & THROAT HENMT: normocephalic/atraumatic, moist mucous membranes - NECK Neck: non-tender, full range of motion, supple - RESPIRATORY Respiratory: chest non-tender, lungs clear, normal breath sounds. negative: rales, rhonchi, wheezing, crepitus - CARDIOVASCULAR Cardiovascular: regular rate, rhythm, no murmur (1/6), other (chronic bilateral leg edema right greater than left) - GASTROINTESTINAL (ABDOMEN) Abdominal Exam: non tender, soft, hernia (large abdominal wall hernia RLQ) - MUSCULOSKELETAL Extremity: erythema (RLE), pedal edema (chronic bilateral leg edema right greater than left) - SKIN Integumentary: warm/dry, erythema (RLE) - NEUROLOGIC Neurologic: grossly normal <Gael Montgomery - Last Filed: 07/30/19 19:02> Progress - PLAN OF CARE/RESULTS Progress/Plan/Lab Results: Vital Signs - 8 hr 07/30/19 17:08 Temperature 98.3 F Pulse Rate 91 H Respiratory Rate 22 Blood Pressure 100/64 O2 Sat by Pulse Oximetry 98 Orders Category Date Time Status Cardiac Monitoring DIRECTED Care 07/30/19 17:17 Active IV Insertion ORDERED Care 07/30/19 17:17 Active Notify MD of + Sepsis Screen NOW Care 07/30/19 17:17 Active Notify Physician As Ordered Care 07/30/19 17:17 Active CHEST-1 VIEW [RAD] Stat Exams 07/30/19 17:17 Taken BLOOD CULTURE [BLDCUL] Stat Lab 07/30/19 17:17 Uncollected CBC WITH DIFF [HEME] Stat Lab 07/30/19 17:17 Uncollected CK PROFILE [SP CHEM] Stat Lab 07/30/19 17:17 Uncollected COMPREHENSIVE METABOLIC PANEL [CHEM] Stat Lab 07/30/19 17:17 Uncollected LACTATE, PLASMA [CHEM] Lab 07/30/19 17:30 Uncollected LACTATE, PLASMA [CHEM] Lab 07/30/19 20:30 Uncollected LACTATE, PLASMA [CHEM] Lab 07/30/19 23:30 Uncollected PROTIME WITH INR [COAG] Stat Lab 07/30/19 17:17 Uncollected PTT [COAG] Stat Lab 07/30/19 17:17 Uncollected TROPONIN T Stat Lab 07/30/19 17:17 Uncollected URINALYSIS W/POSS RFLX CULT [URINALYSIS] Stat Lab 07/30/19 17:17 Uncollected Oxygen Device Stat Oth 07/30/19 17:17 Active Venous U/S Right Leg Stat Ther 07/30/19 17:37 Ordered Result Diagrams: 07/30/19 17:57 07/30/19 17:58 - CHANGE OF SHIFT REPORT (ED Provider) 1 Report Given and Care Transferred to:: Dr Villegas Time of Transfer: 19:00 Items Pending: Ultrasound Results <Gael Montgomery - Last Filed: 07/30/19 19:02> - PLAN OF CARE/RESULTS Progress/Plan/Lab Results: Vital Signs - 8 hr 07/30/19 17:08 07/30/19 19:31 07/30/19 19:35 Temperature 98.3 F Pulse Rate 91 H Respiratory Rate 22 Blood Pressure 100/64 97/42 O2 Sat by Pulse Oximetry 98 99 99 07/30/19 19:36 07/30/19 19:45 07/30/19 20:00 Temperature Pulse Rate 79 Respiratory Rate 17 Blood Pressure O2 Sat by Pulse Oximetry 99 99 100 07/30/19 20:02 Temperature Pulse Rate 80 Respiratory Rate 21 Blood Pressure 126/64 O2 Sat by Pulse Oximetry 99 Laboratory Results - last 24 hr 07/30/19 07/30/19 07/30/19 17:57 17:58 17:58 WBC 7.29 RBC 3.35 L Hgb 11.0 L Hct 32.7 L MCV 97.6 MCH 32.8 H MCHC 33.6 RDW Std Deviation 13.6 Plt Count 55 L MPV 12.4 H Immature Gran % (Auto) 0.4 Neut % (Auto) 79.3 H Lymph % (Auto) 10.4 L Dale % (Auto) 8.2 Eos % (Auto) 1.4 Baso % (Auto) 0.3 Immature Gran # (Auto) 0.03 Neut # (Auto) 5.78 Lymph # (Auto) 0.76 L Dale # (Auto) 0.60 H Eos # (Auto) 0.10 Baso # (Auto) 0.02 PT INR PTT (Actin FS) Sodium 134 L Potassium 3.6 Chloride 102 Carbon Dioxide 22 L Anion Gap 10 BUN 30 H Creatinine 0.9 Estimated GFR/1.73 m2 > 60 BUN/Creatinine Ratio 33 Glucose 104 Calculated Osmolality 275 Calcium 9.6 Total Bilirubin 5.11 H AST 32 H ALT 15 Alkaline Phosphatase 94 Creatine Kinase 74 Troponin T < 0.010 Lhg-M-Uwwoaxhxukh Pept Total Protein 5.4 L Albumin 2.2 L Globulin 3.2 Albumin/Globulin Ratio 0.7 Plasma Lactate Urine Source Urine Color Urine Turbidity Urine pH Ur Specific [place] Urine Protein Ur Glucose (Stick) Ur Ketones (Stick) Urine Blood Urine Nitrite Urine Bilirubin Urobilinogen Dipstick Urine Leukocytes Urine WBC (Auto) Urine RBC (Auto) U Epithel Cells (Auto) Urine Bacteria (Auto) Urine Crystals Small Round Cells Urine Casts Urine Yeast-like Cells 07/30/19 07/30/19 07/30/19 18:07 18:07 18:07 WBC RBC Hgb Hct MCV MCH MCHC RDW Std Deviation Plt Count MPV Immature Gran % (Auto) Neut % (Auto) Lymph % (Auto) Dale % (Auto) Eos % (Auto) Baso % (Auto) Immature Gran # (Auto) Neut # (Auto) Lymph # (Auto) Dale # (Auto) Eos # (Auto) Baso # (Auto) PT 17.0 H INR 1.36 PTT (Actin FS) 40.4 Sodium Potassium Chloride Carbon Dioxide Anion Gap BUN Creatinine Estimated GFR/1.73 m2 BUN/Creatinine Ratio Glucose Calculated Osmolality Calcium Total Bilirubin AST ALT Alkaline Phosphatase Creatine Kinase Troponin T [id number]-[id number]-Kfrnzkghsto Pept 868 H Total Protein Albumin Globulin Albumin/Globulin Ratio Plasma Lactate 2.1 Urine Source Urine Color Urine Turbidity Urine pH Ur Specific [place] Urine Protein Ur Glucose (Stick) Ur Ketones (Stick) Urine Blood Urine Nitrite Urine Bilirubin Urobilinogen Dipstick Urine Leukocytes Urine WBC (Auto) Urine RBC (Auto) U Epithel Cells (Auto) Urine Bacteria (Auto) Urine Crystals Small Round Cells Urine Casts Urine Yeast-like Cells 07/30/19 19:30 WBC RBC Hgb Hct MCV MCH MCHC RDW Std Deviation Plt Count MPV Immature Gran % (Auto) Neut % (Auto) Lymph % (Auto) Dale % (Auto) Eos % (Auto) Baso % (Auto) Immature Gran # (Auto) Neut # (Auto) Lymph # (Auto) Dale # (Auto) Eos # (Auto) Baso # (Auto) PT INR PTT (Actin FS) Sodium Potassium Chloride Carbon Dioxide Anion Gap BUN Creatinine Estimated GFR/1.73 m2 BUN/Creatinine Ratio Glucose Calculated Osmolality Calcium Total Bilirubin AST ALT Alkaline Phosphatase Creatine Kinase Troponin T Crs-T-Mrbqznioasv Pept Total Protein Albumin Globulin Albumin/Globulin Ratio Plasma Lactate Urine Source CLEAN CATCH Urine Color ORANGE Urine Turbidity TURBID Urine pH 6.5 Ur Specific [place] 1.019 Urine Protein 100 A Ur Glucose (Stick) NEGATIVE Ur Ketones (Stick) NEGATIVE Urine Blood MODERATE A Urine Nitrite NEGATIVE Urine Bilirubin SMALL A Urobilinogen Dipstick >12 A Urine Leukocytes LARGE A Urine WBC (Auto) TNTC A Urine RBC (Auto) TNTC A U Epithel Cells (Auto) <10 Urine Bacteria (Auto) 4+ Urine Crystals Not Reportable Small Round Cells Not Reportable Urine Casts Not Reportable Urine Yeast-like Cells Orders Category Date Time Status Cardiac Monitoring DIRECTED Care 07/30/19 17:17 Active IV Insertion ORDERED Care 07/30/19 17:17 Active Notify MD of + Sepsis Screen NOW Care 07/30/19 17:17 Active Notify Physician As Ordered Care 07/30/19 17:17 Active CHEST-1 VIEW [RAD] Stat Exams 07/30/19 17:17 Completed BLOOD CULTURE [BLDCUL] Stat Lab 07/30/19 18:07 Results BNP [PRO B-NATRIURETIC PEPTIDE] Stat Lab 07/30/19 18:07 Completed CBC WITH DIFF [HEME] Stat Lab 07/30/19 17:57 Completed CK PROFILE [SP CHEM] Stat Lab 07/30/19 17:58 Completed COMPREHENSIVE METABOLIC PANEL [CHEM] Stat Lab 07/30/19 17:58 Completed LACTATE, PLASMA [CHEM] Lab 07/30/19 18:07 Completed LACTATE, PLASMA [CHEM] Lab 07/30/19 20:30 Uncollected LACTATE, PLASMA [CHEM] Lab 07/30/19 23:30 Uncollected PROTIME WITH INR [COAG] Stat Lab 07/30/19 18:07 Completed PTT [COAG] Stat Lab 07/30/19 18:07 Completed TROPONIN T Stat Lab 07/30/19 17:58 Completed URINALYSIS W/POSS RFLX CULT [URINALYSIS] Stat Lab 07/30/19 19:30 Completed URINE CULTURE [RM] Routine Lab 07/30/19 19:30 Received URINE MANUAL MICROSCOPIC [URINALYSIS] Stat Lab 07/30/19 19:30 Completed 0.9% Sodium Chloride Inj [Ns] 1,000 ml Med 07/30/19 17:39 Discontinued IV 999 mls/hr Oxygen Device Stat Oth 07/30/19 17:17 Active Venous U/S Right Leg Stat Ther 07/30/19 17:37 Completed Result Diagrams: 07/30/19 17:57 07/30/19 17:58 - CONSULTS/PCP/HOSPITALIST Notification #1 *Consult/PCP/Hospitalist*: Dr Gallardo Time Discussed: 20:57 Consult Disposition: Will see in ED, Admit <Darrell Villegas - Last Filed: 07/30/19 20:57> Departure - Departure Date of Disposition Decision: 07/30/19 Certified Medical Emergency: Emergent - Critical Care Note This patient required my direct & personal management of CC.: No <Ulises,Gael E. - Last Filed: 07/30/19 19:02> - Departure Time of Disposition Decision: 20:28 Certified Medical Emergency: Emergent - Critical Care Note This patient required my direct & personal management of CC.: No <BakariDarrell C. - Last Filed: 07/30/19 20:57> - Departure DIAGNOSIS: UTI (urinary tract infection), Cellulitis, Sepsis Disposition: ADMITTED INPATIENT 09 Condition: Fair Referrals and Follow-Ups: Alberto Westfall MD [Primary Care Provider] - Attestation - Physician/ MANE Attestation Patient care was provided by Advanced Practice Provider:: No The physician spent face to face time with patient:: Yes Advanced Practice Provider documentation review:: Supervising physician onsite and consulted in the evaluation and care of this patient. The physician did have a face to face encounter with the patient. <Gael Montgomery - Last Filed: 07/30/19 19:02> This chart was documented by the indicated scribe, (Thelma Yu, Tramaine) and accurately reflects the services I performed and decisions made by me, Gael Montgomery, DO, as attested by the provider's signature.
[2019-07-30 19:34] LABS: URINE SOURCE CLEAN CATCH
[2019-07-30 20:06] LABS: BILIRUBIN URINE SMALL (NEGATIVE); BLOOD URINE MODERATE (NEGATIVE); COLOR ORANGE; GLUCOSE URINE NEGATIVE (NEGATIVE); KETONE URINE NEGATIVE (NEGATIVE); LEUKOCYTES URINE LARGE (NEGATIVE); NITRITE URINE NEGATIVE (NEGATIVE); PH URINE 6.5; PROTEIN URINE 100 mg/dL (NEGATIVE); SP GRAVITY URINE 1.019; TURBIDITY URINE TURBID (CLEAR); UR EPITHELIAL CELLS <10 /HPF (<10); URINE BACTERIA 4+ /HPF; URINE RBC TNTC /HPF (<10); URINE WBC TNTC /HPF (<10); UROBILINOGEN URINE >12 mg/dL (NORMAL)
--- NOTE | 2019-07-30 20:30 | SEPSIS: TISSUE PERFUSION ASSMT ---
Sepsis: Tissue Perfusion Assmt - Physical Exam Assessment Date: 07/30/19 Time Assessment Initialized: 20:29 Vital Signs: Last Vital Signs Temp 98.3 F 07/30/19 17:08 Pulse 80 07/30/19 20:02 Resp 21 07/30/19 20:02 BP 126/64 07/30/19 20:02 Pulse Ox 99 07/30/19 20:02 Height 5 ft 4 in Weight 112.491 kg Lung Sounds:: lungs clear Heart Sounds:: Regular Capillary Refill Time: Less Than 2 Seconds Peripheral Pulse Evaluation:: radial (R): 4+, radial (L): 4+, dorsalis-pedis (R): 4+, dorsalis-pedis (L): 4+ Skin Exam:: flushed - Impression Impression:: Tissue Perfusion Adequate - Plan Plan:: See Orders
[2019-07-30] MEDS ORDERED: ROCEPHIN 1 GM in NS 50 ML IV ONE (20:55)
[2019-07-31] MEDS ORDERED: VANCOMYCIN IV PER PHARMACY MISC SCH (01:27)
[2019-07-31] MEDS ORDERED: ZOFRAN IV PRN (01:27)
--- NOTE | 2019-07-31 02:50 | HISTORY AND PHYSICAL ---
PRIMARY CARE PHYSICIAN: Dr. Westfall. CHIEF COMPLAINT: Right lower extremity tenderness and pain. HISTORY OF PRESENTING ILLNESS: A 64-year-old female with a history of CASANOVA cirrhosis, cervical cancer, ventral hernia, obstructive sleep apnea, who had presented to emergency department with 3 days history of worsening right lower extremity pain, and erythema and tenderness. She states that her symptoms were worsening and subsequently she had come to the emergency department. In the ED, she was evaluated and her symptoms are consistent with cellulitis. Subsequently, she will require admission for further management. At the time of my examination, she had denied any headache, fever, chills, chest pain, shortness of breath, but complained of right lower extremity pain and tenderness. PAST MEDICAL HISTORY: Includes CASANOVA cirrhosis, cervical cancer, ventral hernia, obstructive sleep apnea, depression, obesity. PAST SURGICAL HISTORY: Hysterectomy, cholecystectomy, right eye cataract surgery, tonsillectomy. ALLERGIES: No known drug allergies. CURRENT MEDICATIONS: Include Lexapro 10 mg p.o. daily, Lasix 40 mg p.o. daily, lactulose 30 mL p.o. b.i.d. spironolactone 50 mg p.o. daily. SOCIAL HISTORY: She denies any history of smoking, alcohol or illicit drug use. FAMILY HISTORY: Positive for coronary artery disease in father. REVIEW OF SYSTEMS: Fourteen point review of systems as listed in HPI. Other systems negative. PHYSICAL EXAMINATION: GENERAL: Cooperative, friendly, obese female. She is without any respiratory distress. VITAL SIGNS: Temperature 98.2 degrees, pulse 91, respirations 22, blood pressure 100/64. HEENT: Atraumatic, normocephalic. Extraocular movements intact. PERRLA. NECK: Supple. CHEST: Clear to auscultation. CARDIOVASCULAR: Regular rate and rhythm. ABDOMEN: Soft, obese, positive bowel sounds. EXTREMITIES: Moderate edema and erythema on the right lower extremity. Suspect +3 of 4 and edema and also moderate tenderness. GENITOURINARY: No bladder distention. SKIN: Warm. NEUROLOGIC: Nonfocal. LABORATORIES AND STUDIES: WBC 7.29, hemoglobin 11.1, hematocrit 32.7, platelets 55,000. Sodium 134, potassium 3.6, chloride 102, CO2 is 22, BUN is 30, creatinine 0.9, glucose 104. ASSESSMENT: This is a 64-year-old obese female with a history of nonalcoholic steatohepatitis cirrhosis, cervical cancer, ventral hernia, obstructive sleep apnea, who had presented to the emergency department with 3 days history of worsening edema, tenderness in right lower extremity. She was evaluated in the emergency department. Her symptoms were consistent with cellulitis. Subsequently, she will require admission for further management. 1. Right lower extremity cellulitis. 2. Nonalcoholic steatohepatitis cirrhosis. 3. Suspected urinary tract infection. 4. Obesity. PLAN: 1. We will admit patient to medical floor with telemetry. 2. We will start patient on IV antibiotics. 3. Restart other home medications. 4. We will check a urine culture. 5. We will hold anticoagulation due to low platelets. 6. We will continue to follow, reassess and make further recommendation based on patient's clinical course. cc: MD Lio Giles MD
[2019-07-31] MEDS ORDERED: VANCOMYCIN 2,500 MG in NS 500 ML IV ONE (03:00)
[2019-07-31 07:42] LABS: BASO# 0.01 X1000 (0.0-0.2); BASO% 0.2 % (0.0-0.8); EOS# 0.18 X1000 (0.0-0.7); HEMATOCRIT 28.4 % (37.0-47.0); HEMOGLOBIN 9.4 g/dL (12.0-16.0); LYMPH# 0.64 X1000 (1.2-3.4); LYMPH% 10.7 % (20.5-51.1); MCH 32.3 PG (27-31); MCHC 33.1 g/dL (33-37); MCV 97.6 FL (81-99); MONO# 0.71 X1000 (0.11-0.59); MONO% 11.9 % (1.7-9.3); MPV 11.7 FL (7.4-10.4); NEUT# 4.43 X1000 (1.4-6.5); NEUT% 74.2 % (42.2-75.2); PLT 57 X1000 (130-400); RBC 2.91 XMIL (4.2-5.4); RDW 13.5 % (11.5-14.5); WBC 5.97 X1000 (4.8-10.8)
[2019-07-31 07:55] LABS: AGAP 11; BUN 28 mg/dL (8-22); CALCIUM 8.9 mg/dL (8.8-10.2); CHLORIDE 106 mmol/L (98-107); COSMO 281; CREATININE 0.7 mg/dL (0.5-0.9); ESTIMATED GFR > 60; GLUCOSE 101 mg/dL (70-104); POTASSIUM 3.3 mmol/L (3.5-5.1); SODIUM 138 mmol/L (136-145); TCO2 21 mmol/L (25-35)
[2019-07-31] MEDS ORDERED: KLOR-CON PO ONE (08:48)
[2019-07-31] MEDS ORDERED: LASIX IV ONE (08:49)
[2019-07-31] MEDS ORDERED: SODIUM CHLORIDE 0.9% INJ SCH (09:00)
[2019-07-31] MEDS ORDERED: LASIX PO SCH (09:00)
[2019-07-31] MEDS: ALDACTONE PO SCH (09:16)
[2019-07-31] MEDS: ICAR-C PLUS PO SCH (09:16)
[2019-07-31] MEDS: LEXAPRO PO SCH (09:16)
[2019-07-31] MEDS: LACTULOSE PO SCH ×2 (09:17→20:31)
[2019-07-31] MEDS: XIFAXAN PO SCH ×2 (09:36→20:31)
[2019-07-31] MEDS: PROTONIX IV SCH (09:37)
[2019-07-31] MEDS: SODIUM CHLORIDE 0.9% INJ SCH (09:37)
--- NOTE | 2019-07-31 09:39 | Extremity Venous Study ---
PROCEDURE NAME: Venous U/S Right Leg - 07/30/2019 PROCEDURE: Right lower extremity venous duplex and color flow imaging study. EQUIPMENT USED: Using the [employer]id E 9 ultrasound system with a 9 L-D transducer. REFERRING PHYSICIAN: Dr. Montgomery from the Emergency Department. PATIENT PROFILE: A 64-year-old female. 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 INDICATIONS: Pain and swelling of right lower extremity. Rule out deep venous thrombosis. FINDINGS: The right common femoral vein and its branches, deep and superficial femoral veins were satisfactorily imaged. They had flow through them and were compressible. Right popliteal vein and the deep veins below the right knee were all compressible and had flow through them. The superficial veins of the right lower extremity were compressible throughout their length. The left common femoral vein and its branches, deep and superficial femoral veins were also satisfactorily imaged. They had flow through them and were compressible. Left popliteal vein and the deep veins below the left knee were all compressible and had flow through them. The superficial veins of the left lower extremity were compressible throughout their length. INTERPRETATION: No evidence of acute deep or superficial venous thrombosis, right lower extremity. cc: MD Gael Yoon DO Lloyd James, MD
[2019-07-31] MEDS: VANCOMYCIN 1,300 MG in NS 250 ML IV SCH ×2 (15:26→17:26)
[2019-07-31] MEDS: ROCEPHIN 1 GM in NS 50 ML IV SCH (20:31)
--- NOTE | 2019-07-31 22:03 | PROGRESS NOTE ---
DATE: 07/31/2019 64-year-old morbidly obese white female came to the hospital with right lower extremity redness and pain, with altered mental status. H and P was dictated by hospitalist on 07/30/2019. Patient is out of the bed with the potty. Poor IV access. Recently discharged from the hospital a month ago. PAST MEDICAL HISTORY: Reviewed. PAST SURGICAL HISTORY: Reviewed. MEDICINES: Reviewed. ALLERGIES: Not known. PHYSICAL EXAMINATION: Vital signs: Temperature is 98 degrees, pulse 87, blood pressure is stable. General: Morbidly obese. Chest: Clear. Heart: Regular heart sounds. Abdomen: Belly is soft, obese. Huge ventral hernia noted on the right side of the abdomen. Extremities: Right leg is diffusely swollen. LABS: White cell count 5.9, hematocrit 28.4, platelets 57,000. Sodium 138, potassium 3.3, BUN 28, creatinine 0.7, glucose 111, bilirubin 5.11. Urinalysis positive for infection. Urine cultures with gram-negative bernadine. Blood cultures are pending. Extremity venous studies: No evidence of acute DVT. Chest x-ray: Prominent heart. ASSESSMENT: 1. Right leg cellulitis. Currently receiving vancomycin and ceftriaxone. 2. Cirrhosis of liver, due to nonalcoholic steatohepatitis. 3. Pancytopenia. 4. Splenomegaly. 5. Large ventral hernia. 6. Urinary tract infection. PLAN: 1. Follow up on urine culture. 2. Continue on intravenous Lasix. 3. Replace the potassium. 4. Xifaxan for the ammonia encephalopathy. 5. Poor intravenous access. Will set up peripherally inserted central catheter line. 6. Gastrointestinal prophylaxis with intravenous Protonix. 7. Check the labs in the morning. LEVEL OF DOCUMENTATION: 35 minutes. cc: MD Frank Fuentes MD
[2019-08-01] MEDS: VANCOMYCIN 1,300 MG in NS 250 ML IV SCH ×2 (04:25→16:26)
[2019-08-01 07:43] LABS: INR 1.39; PROTIME 17.3 Seconds (11.0-16.0)
[2019-08-01 07:47] LABS: BASO# 0.03 X1000 (0.0-0.2); BASO% 0.5 % (0.0-0.8); EOS# 0.45 X1000 (0.0-0.7); EOS% 8.1 % (0.0-10.0); HEMATOCRIT 28.2 % (37.0-47.0); HEMOGLOBIN 9.5 g/dL (12.0-16.0); IMM GRAN# 0.05 X1000 (0.0-0.04); IMM GRAN% 0.9 % (0.0-0.5); LYMPH# 1.09 X1000 (1.2-3.4); LYMPH% 19.5 % (20.5-51.1); MCH 32.6 PG (27-31); MCHC 33.7 g/dL (33-37); MCV 96.9 FL (81-99); MONO# 0.74 X1000 (0.11-0.59); MONO% 13.2 % (1.7-9.3); MPV 11.7 FL (7.4-10.4); NEUT# 3.23 X1000 (1.4-6.5); NEUT% 57.8 % (42.2-75.2); PLT 72 X1000 (130-400); RBC 2.91 XMIL (4.2-5.4); RDW 13.5 % (11.5-14.5); WBC 5.59 X1000 (4.8-10.8)
[2019-08-01 08:02] LABS: AGAP 9; ALB/GLOB RATIO 0.7; ALBUMIN 1.9 g/dL (3.5-5.0); ALKALINE PHOSPHATASE 85 U/L (32-104); BUN 25 mg/dL (8-22); CALCIUM 8.8 mg/dL (8.8-10.2); CHLORIDE 107 mmol/L (98-107); COSMO 280; CREATININE 0.7 mg/dL (0.5-0.9); ESTIMATED GFR > 60; GLUCOSE 91 mg/dL (70-104); GOT 27 U/L (10-30); GPT 14 U/L (10-36); POTASSIUM 3.4 mmol/L (3.5-5.1); SODIUM 138 mmol/L (136-145); TCO2 22 mmol/L (25-35); TOTAL BILIRUBIN 2.45 mg/dL (0.20-1.00); TOTAL PROTEIN 4.6 g/dL (6.3-8.3)
[2019-08-01] MEDS ORDERED: KLOR-CON PO ONE (08:06)
[2019-08-01] MEDS: ICAR-C PLUS PO SCH (09:15)
[2019-08-01] MEDS: PROTONIX IV SCH (09:15)
[2019-08-01] MEDS: ALDACTONE PO SCH (09:15)
[2019-08-01] MEDS: LASIX IV SCH (09:16)
[2019-08-01] MEDS: LACTULOSE PO SCH ×2 (09:16→20:13)
[2019-08-01] MEDS: XIFAXAN PO SCH ×2 (09:16→20:13)
[2019-08-01] MEDS: LEXAPRO PO SCH (09:16)
[2019-08-01] MEDS ORDERED: ULTRAM PO PRN (10:58)
[2019-08-01] MEDS: ALBUMIN 25% IV SCH (11:17)
--- NOTE | 2019-08-01 15:51 | PROGRESS NOTE ---
DATE: 08/01/2019 SUBJECTIVE: The patient is awake and poor IV access. Right leg is diffusely swollen. PHYSICAL EXAMINATION: Vital Signs: Temperature is 100 degrees, pulse 88, vitals are stable. Weight 385 pounds, morbidly obese, slightly jaundice. Poor air entry. Heart: Sounds are very distant. Belly is soft. He has ventral hernia. Extremities: Right leg is diffusely swollen and red. INVESTIGATIONS: White cell count 5.5, hematocrit 28, platelets 72,000. PT 17, INR 1.3. SMA 7: Potassium 3.4, bilirubin is coming down to 0.4. Ammonia level 74, albumin is 1.9. Urine cultures: Gram-negative rods. Blood cultures are negative. ASSESSMENT/PLAN: 1. Right leg cellulitis. Deep venous thrombosis is negative. Currently receiving ceftriaxone and vancomycin. 2. Hypokalemia. Replace the potassium. 3. Urinary tract infection. Follow up on culture. 4. Cirrhosis of liver. Pancytopenia due to splenomegaly. Continue on fluid restrictions. Intravenous Lasix. 5. Edema and hypoalbuminemia. Albumin IV followed by diuresis. 6. Ammonia encephalopathy. Continue on lactulose and Xifaxan and for pain tramadol as needed. 7. Poor intravenous access. Consider PICC line. LEVEL OF DOCUMENTATION: 25 minutes. cc: Lio Westfall MD
[2019-08-01] MEDS: ROCEPHIN 1 GM in NS 50 ML IV SCH (20:13)
[2019-08-02] MEDS: VANCOMYCIN 1,300 MG in NS 250 ML IV SCH ×2 (04:22→16:59)
[2019-08-02] MEDS: ALBUMIN 25% IV SCH (09:05)
[2019-08-02] MEDS: LACTULOSE PO SCH ×2 (09:06→22:02)
[2019-08-02] MEDS: ALDACTONE PO SCH (09:06)
[2019-08-02] MEDS: LEXAPRO PO SCH (09:06)
[2019-08-02] MEDS: XIFAXAN PO SCH ×2 (09:06→22:02)
[2019-08-02] MEDS: ICAR-C PLUS PO SCH (09:06)
[2019-08-02] MEDS: SODIUM CHLORIDE 0.9% INJ SCH (09:07)
[2019-08-02] MEDS: LASIX IV SCH (09:07)
[2019-08-02] MEDS: PROTONIX IV SCH (09:07)
--- NOTE | 2019-08-02 11:04 | PROGRESS NOTE ---
DATE: 08/02/2019 SUBJECTIVE: The patient says she is feeling a little bit better. Leg still hurts at times. Urination is better. OBJECTIVE: Vital Signs: Blood pressure 138/56, respirations 18, pulse 90, temperature 99 degrees Fahrenheit. HEENT: She is normocephalic. EOMS intact. PERRLA. Throat clear. Lungs: Clear to auscultation and percussion without rhonchi, rales, or wheezes. Heart: Regular rate and rhythm without murmurs, gallops, friction rubs. Abdomen: Soft. Active bowel sounds. No megaly or tenderness. The patient is morbidly obese. Extremity: The right lower extremity is swollen and red. Neurological exam: Intact grossly. PAST MEDICAL HISTORY: Includes CASANOVA, cirrhosis, cervical cancer, ventral hernia, sleep apnea, depression, obesity. ASSESSMENT: 1. Right lower extremity cellulitis. 2. Non-alcoholic steatohepatitis. 3. Cirrhosis. 4. Urinary tract infection. 5. Morbid obesity. PLAN: Continue support with antibiotics. cc: MD Lio An Jr, MD
[2019-08-02] MEDS ORDERED: TYLENOL PO PRN (11:15)
[2019-08-02] MEDS ORDERED: MOTRIN PO PRN (11:26)
[2019-08-02] MEDS: MOTRIN PO PRN (11:45)
[2019-08-02] MEDS: ROCEPHIN 1 GM in NS 50 ML IV SCH (22:02)
[2019-08-03] MEDS: VANCOMYCIN 1,300 MG in NS 250 ML IV SCH ×2 (05:52→16:33)
[2019-08-03 08:51] LABS: INR 1.28; MPV 10.9 FL (7.4-10.4); PROTIME 16.2 Seconds (11.0-16.0)
[2019-08-03] MEDS: LEXAPRO PO SCH (09:05)
[2019-08-03] MEDS: LACTULOSE PO SCH ×2 (09:05→20:47)
[2019-08-03] MEDS: ALDACTONE PO SCH (09:05)
[2019-08-03] MEDS: ICAR-C PLUS PO SCH (09:05)
[2019-08-03] MEDS: SODIUM CHLORIDE 0.9% INJ SCH (09:06)
[2019-08-03] MEDS: XIFAXAN PO SCH ×2 (09:06→20:47)
[2019-08-03] MEDS: PROTONIX IV SCH (09:06)
[2019-08-03] MEDS: MOTRIN PO PRN (09:17)
[2019-08-03] MEDS: ALBUMIN 25% IV SCH (10:36)
[2019-08-03] MEDS ORDERED: NS 250 ML ONE (13:19)
--- NOTE | 2019-08-03 15:17 | Diag Imaging Result Doc PS360 ---
EXAM: CHEST-PORTABLE HISTORY: picc line placement TECHNIQUE: Single view COMPARISON: 07/30/2019 FINDINGS: There is a right-sided PICC line on the current exam. The tip overlies the right atrium. The heart is enlarged. There is pulmonary edema. No pleural effusions identified. IMPRESSION: PICC line in good position Electronically signed by Jeremie Johnson 08/03/2019 3:15 PM
[2019-08-03] MEDS: MERREM 1 GM in NS 50 ML IV SCH (15:59)
--- NOTE | 2019-08-03 19:08 | PROGRESS NOTE ---
DATE: 08/03/2019 SUBJECTIVE: The patient is a little better. PICC line was placed on the right side. Right leg is slowly improving. OBJECTIVE: On exam, temperature is 98.1 degrees, pulse 78, blood pressure 101/57, 96%. Morbidly obese. Bilateral air entry. Distant heart sounds. Belly is soft. Large ventral hernia. Right leg is diffusely swollen and red, is improving. LABORATORY DATA: Platelets 76,000. INR 1.2. Ammonia level 74. Urine culture: ESBL positive. Blood cultures were negative. ASSESSMENT AND PLAN: 1. Right leg cellulitis. Continue intravenous vancomycin. 2. Extended-spectrum beta-lactamase Escherichia coli. Intravenous meropenem 1 g q.8. 3. Cirrhosis of liver with pancytopenia and splenomegaly, stable. 4. Large ventral hernia, stable. 5. Edema. We will continue albumin with Lasix. 6. Gastrointestinal prophylaxis with intravenous Protonix. 7. Depression, on Lexapro. 8. Ammonemia/encephalopathy. Continue with Xifaxan and lactulose. 9. Wound Care consult for lymphedema. Level of documentation 25 minutes. cc: Lio Westfall MD
[2019-08-04] MEDS: MERREM 1 GM in NS 50 ML IV SCH ×3 (00:37→16:43)
[2019-08-04] MEDS: VANCOMYCIN 1,300 MG in NS 250 ML IV SCH ×2 (04:50→16:43)
[2019-08-04] MEDS: LEXAPRO PO SCH (08:39)
[2019-08-04] MEDS: XIFAXAN PO SCH ×2 (08:40→20:23)
[2019-08-04] MEDS: LACTULOSE PO SCH ×2 (08:40→20:23)
[2019-08-04] MEDS: ALDACTONE PO SCH (08:41)
[2019-08-04] MEDS: PROTONIX IV SCH (08:41)
[2019-08-04] MEDS: ICAR-C PLUS PO SCH (08:41)
--- NOTE | 2019-08-04 19:33 | PROGRESS NOTE ---
DATE: 08/04/2019 SUBJECTIVE: The patient is somewhat better, still in the bed. Waiting for wound consult for lymphedema in both legs. Palliative Care consult was initiated. OBJECTIVE: Vital signs: The patient has a low-grade fever, tachycardic. Vitals are stable. Morbidly obese. Chest: Clear. Heart: Heart sounds are regular. Abdomen: Belly is soft, obese. Extremities: Right leg cellulitis is improving. INVESTIGATIONS: None reported. ASSESSMENT AND PLAN: 1. Extended-spectrum beta lactamase Escherichia coli. Intravenous meropenem. 2. Cirrhosis of liver due to nonalcoholic steatohepatitis with splenomegaly, stable. 3. Peripherally inserted central catheter line on the right side for intravenous access. 4. Right leg cellulitis with lymphedema. Continue intravenous vancomycin. 5. Ammonia encephalopathy, on lactulose and Xifaxan. 6. Depression, on Lexapro. 7. Initiated palliative care consult for Living Will and further options. LEVEL OF DOCUMENTATION: 25 minutes. cc: Lio Westfall MD
[2019-08-05] MEDS: MERREM 1 GM in NS 50 ML IV SCH ×4 (00:16→23:47)
[2019-08-05] MEDS: VANCOMYCIN 1,300 MG in NS 250 ML IV SCH ×2 (03:13→15:56)
[2019-08-05] MEDS: XIFAXAN PO SCH ×2 (09:35→22:12)
[2019-08-05] MEDS: ICAR-C PLUS PO SCH (09:35)
[2019-08-05] MEDS: LEXAPRO PO SCH (09:35)
[2019-08-05] MEDS: LACTULOSE PO SCH ×2 (09:36→22:12)
[2019-08-05] MEDS: PROTONIX IV SCH (09:36)
[2019-08-05] MEDS: ALDACTONE PO SCH (09:36)
[2019-08-05] MEDS: SODIUM CHLORIDE 0.9% INJ SCH (09:36)
--- NOTE | 2019-08-05 14:53 | PROGRESS NOTE ---
DATE: 08/05/2019 SUBJECTIVE: The patient is a little better waiting for wound consult. REVIEW OF SYSTEMS: None reported. EXAM: General/Vital Signs: Still running fever, pulse 96. Vitals are stable. HEENT: Within normal limits. Neck: Supple. Chest: Clear. Heart: Sounds are regular. Extremities: Right leg is diffusely edematous with lymphedema and cellulitis. LABS: No labs were done. ASSESSMENT AND PLAN: 1. Right leg cellulitis with lymphedema. 2. 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 3. Pancytopenia. 4. Ammonia encephalopathy. 5. Ventral hernia. 6. Urinary tract infection with extended spectrum beta lactamase Escherichia coli. The patient is on vancomycin and meropenem. Out of the bed with physical therapy. We will check the labs in the morning and will follow up. LEVEL OF DOCUMENTATION: 25 minutes. cc: Lio Westfall MD
[2019-08-06] MEDS: VANCOMYCIN 1,300 MG in NS 250 ML IV SCH ×2 (03:11→15:30)
[2019-08-06 07:36] LABS: BASO# 0.04 X1000 (0.0-0.2); BASO% 0.7 % (0.0-0.8); EOS# 0.35 X1000 (0.0-0.7); EOS% 6.3 % (0.0-10.0); HEMATOCRIT 29.7 % (37.0-47.0); HEMOGLOBIN 9.6 g/dL (12.0-16.0); IMM GRAN# 0.06 X1000 (0.0-0.04); IMM GRAN% 1.1 % (0.0-0.5); LYMPH% 18.1 % (20.5-51.1); MCH 32.4 PG (27-31); MCHC 32.3 g/dL (33-37); MCV 100.3 FL (81-99); MONO# 0.49 X1000 (0.11-0.59); MONO% 8.9 % (1.7-9.3); MPV 10.8 FL (7.4-10.4); NEUT# 3.59 X1000 (1.4-6.5); NEUT% 64.9 % (42.2-75.2); PLT 109 X1000 (130-400); RBC 2.96 XMIL (4.2-5.4); RDW 13.8 % (11.5-14.5); WBC 5.53 X1000 (4.8-10.8)
[2019-08-06 07:55] LABS: AGAP 9; ALB/GLOB RATIO 0.8; ALBUMIN 2.2 g/dL (3.5-5.0); ALKALINE PHOSPHATASE 81 U/L (32-104); BUN 13 mg/dL (8-22); CALCIUM 8.7 mg/dL (8.8-10.2); CHLORIDE 107 mmol/L (98-107); COSMO 277; CREATININE 0.6 mg/dL (0.5-0.9); ESTIMATED GFR > 60; GLUCOSE 94 mg/dL (70-104); GOT 49 U/L (10-30); GPT 22 U/L (10-36); POTASSIUM 3.9 mmol/L (3.5-5.1); SODIUM 139 mmol/L (136-145); TCO2 23 mmol/L (25-35); TOTAL BILIRUBIN 1.54 mg/dL (0.20-1.00)
[2019-08-06] MEDS: XIFAXAN PO SCH ×2 (08:14→19:59)
[2019-08-06] MEDS: PROTONIX IV SCH (08:14)
[2019-08-06] MEDS: ALDACTONE PO SCH (08:14)
[2019-08-06] MEDS: MERREM 1 GM in NS 50 ML IV SCH ×3 (08:14→23:55)
[2019-08-06] MEDS: ICAR-C PLUS PO SCH (08:14)
[2019-08-06] MEDS: SODIUM CHLORIDE 0.9% INJ SCH (08:14)
[2019-08-06] MEDS: LEXAPRO PO SCH (08:15)
[2019-08-06] MEDS: LACTULOSE PO SCH ×3 (10:30→20:01)
--- NOTE | 2019-08-06 13:40 | PROGRESS NOTE ---
DATE: 08/06/2019 SUBJECTIVE: The patient is stable still in the bed. Palliative Care consult was obtained. Wound care consult on vacation. Right leg redness is slowly improving. PHYSICAL EXAMINATION: Temperature is 98.5 degrees, pulse 85, blood pressure is 150/85, 291 pounds.HEENT: Jaundice is better. Right leg swelling is improving. LABS: White cell count 5.5, hematocrit 29.7, MCV 100, platelets 109,000. SMA 7 is normal. Glucose 93. LFTs were coming down. Ammonia level is 46. Urine cultures E coli. Blood cultures are negative. ESBL positive. ASSESSMENT AND PLAN: 1. Extended spectrum beta-lactamase Escherichia coli with urinary tract infection. 2. Ammonia encephalopathy with cirrhosis of liver. 3. Right leg cellulitis with lymphedema. Continue on present treatment vancomycin and meropenem and right-sided peripherally inserted central catheter line was stable. Continue to follow up. LEVEL OF DOCUMENTATION: 25 minutes. cc: Lio Westfall MD
[2019-08-07] MEDS: VANCOMYCIN 1,300 MG in NS 250 ML IV SCH ×2 (04:29→17:19)
[2019-08-07] MEDS: MERREM 1 GM in NS 50 ML IV SCH ×2 (08:53→16:50)
[2019-08-07] MEDS: LEXAPRO PO SCH (08:53)
[2019-08-07] MEDS: SODIUM CHLORIDE 0.9% INJ SCH (08:53)
[2019-08-07] MEDS: XIFAXAN PO SCH ×2 (08:53→21:07)
[2019-08-07] MEDS: ALDACTONE PO SCH (08:53)
[2019-08-07] MEDS: ICAR-C PLUS PO SCH (08:53)
[2019-08-07] MEDS: LACTULOSE PO SCH ×2 (08:54→21:07)
[2019-08-07] MEDS: PROTONIX IV SCH (08:54)
[2019-08-07] MEDS ORDERED: TYLENOL PO PRN (11:53)
--- NOTE | 2019-08-07 12:32 | Diag Imaging Result Doc PS360 ---
EXAM: CHEST-2 VIEWS 08/07/2019 HISTORY: infection TECHNIQUE: AP and lateral chest COMMENT: There are bilateral pleural effusions. There is cardiomegaly. There is a PICC line on the right with its tip in the right atrium. Compared to 08/03/2019 the appearance on the AP view has not changed appreciably. IMPRESSION: Cardiomegaly and bilateral pleural effusions. Electronically signed by Tai Soler 08/07/2019 12:30 PM
--- NOTE | 2019-08-07 21:40 | PROGRESS NOTE ---
DATE: 08/07/2019 SUBJECTIVE: The patient had a fever of 101. Panculture workup was done. The patient has vancomycin and meropenem. She has a right leg cellulitis and ESBL E coli, underlying alcohol cirrhosis, morbidly obese. Not in respiratory distress. PHYSICAL EXAMINATION: Vital signs: Temperature is 100.1 degrees. Vitals are stable. 94% on room air. PICC line noted on the right side. Chest: Poor air entry. Heart: Distant heart sounds. Abdomen: Belly is soft, obese. Extremities: Right leg is diffusely swollen. INVESTIGATIONS: Stable. Panculture workup done again yesterday. ASSESSMENT AND PLAN: 1. Fever of 101 despite IV antibiotics and right leg cellulitis. Deep vein thrombosis studies are negative. Plan is Dr. Rodriguez consult. 2. Alcohol cirrhosis. 3. Pancytopenia due to splenomegaly. 4. Ammonia encephalopathy. Better. 5. Morbid obesity. 6. Dependent lymphedema and waiting for wound care consult for lymphedema treatment. 7. Reactive depression, stable on Lexapro. PLAN: I did a re-culture again. We will discuss with Dr. Rodriguez and we will follow up. LEVEL OF DOCUMENTATION: 25 minutes. cc: Lio Westfall MD
[2019-08-08] MEDS: MERREM 1 GM in NS 50 ML IV SCH ×3 (00:21→16:26)
[2019-08-08] MEDS: VANCOMYCIN 1,300 MG in NS 250 ML IV SCH ×2 (04:31→16:26)
[2019-08-08] MEDS: ICAR-C PLUS PO SCH (09:28)
[2019-08-08] MEDS: XIFAXAN PO SCH ×2 (09:28→21:26)
[2019-08-08] MEDS: LACTULOSE PO SCH ×2 (09:28→21:27)
[2019-08-08] MEDS: PROTONIX IV SCH (09:28)
[2019-08-08] MEDS: ALDACTONE PO SCH (09:28)
[2019-08-08] MEDS: LEXAPRO PO SCH (09:28)
--- NOTE | 2019-08-08 10:51 | INFECTIOUS DISEASE CONSULT REP ---
DATE: 08/08/2019 CONCLUSION: The patient is on antibiotic therapy for a urinary tract infection and a right leg cellulitis. Despite being on broad-spectrum coverage, the patient is continuing to have fever. I think it is possible that the patient's urinary tract infection may be complicated, and there may be a blockage or an abscess present. Also, I think it is possible that the patient has an infection originating from her PICC in the right arm such as a fungal infection. RECOMMENDATIONS: I would continue with the current antibiotics, namely meropenem and vancomycin, and I am going to add empirically micafungin in case there is a fungal infection originating from the PICC. Also, I have ordered a CT scan stone search to see if there is any blockage in the urinary tract or if there is a renal abscess which is causing the patient's fever. Also, I have ordered in the CT scan stone search to do a postvoid residual urine to make sure that the patient empties her bladder fully. DISCUSSION: The patient was admitted to the hospital. She has an extended- spectrum beta- lactamase producing Escherichia coli urinary tract infection. The patient also has cellulitis of the right leg. The patient's CBC shows a white count of 5530, hemoglobin 9.6, platelet count 109,000. Creatinine is 0.6, GFR is greater than 60. AST is 49. As mentioned above, the patient's urine culture grew an extended-spectrum beta-lactamase producing Escherichia coli. Repeat urine culture is pending. Also, the patient initially had negative blood cultures, but repeat ones are still are pending also. The patient's AST is 49. The CBC shows a white count of 5530, hemoglobin 9.6, platelet count 109,000, creatinine is 0.6, GFR is greater than 60. OBSTETRICAL/GYNECOLOGICAL HISTORY: She is a 2, para 2, abortus 0. She delivered one of her children by section. PAST MEDICAL HISTORY/REVIEW OF SYSTEMS: Eyes and Ears: The patient's vision and hearing are good. Neck: No stiffness. Respiratory: No cough or shortness of breath. Cardiac: No chest pain or palpitations. Gastrointestinal: No nausea, vomiting, or diarrhea. Genitourinary: See present illness. Neurologic: The patient does not have seizures. She is able to walk despite having a large inguinal hernia and being obese. PREVIOUS HOSPITALIZATIONS AND OPERATIONS: She has had labor and delivery, a section, a hysterectomy, a cholecystectomy, and a tonsillectomy. MEDICAL DISEASES: Positive for obesity and uterine cancer. INFECTIOUS DISEASE HISTORY: Positive for UTI. Negative for pneumonia. FAMILY HISTORY: Positive for congestive heart failure, stroke, and cancer. SOCIAL HISTORY: [place] She is . She lives with her daughter. She has a dog as a pet. ALLERGIES: She does not have any drug allergies. MEDICATIONS: Taken at home include the following: Lexapro, Lasix, spironolactone, and lactulose. PHYSICAL EXAMINATION: Vital Signs: Temperature earlier was 102; it is 99.4 now. Pulse is 91. Respirations are 21, blood pressure is 120/66. The patient weighs 290 pounds. General: This is a morbidly obese, elderly female. She is in no acute distress. Head/Eyes/Ears/Nose/Throat: Can hear my spoken words and see near objects. No drainage noted from the nose or ears. She does not have any white coating on her tongue. Neck: No meningismus. Lungs: Clear to auscultation. Cardiovascular: Heart rate is regular. Abdomen: Soft and nontender. There is a very large right lower quadrant abdominal wall hernia. Neurologic: The patient is alert. She can move her extremities. There is no tremor. Her memory as regarding her medical history was good. Extremities: The right leg is erythematous. Both legs are edematous and have peau da orange skin. Thank you for the consultation. cc: MD Lio Hdez MD MTDD
--- NOTE | 2019-08-08 13:38 | Diag Imaging Result Doc PS360 ---
EXAM: CT RENAL STONE SEARCH 08/08/2019 HISTORY: UTI TECHNIQUE: This exam was performed using automated exposure control, adjustment of mA or kV according to patient size, and/or use of iterative reconstruction technique. COMMENT: The current examination is compared with the previous study of 03/03/2018. There is bibasilar atelectasis which is worse than on the previous examination. There are bilateral pleural effusions which were not present previously. There is ascites. This was also not present previously. There is marked subcutaneous edema particularly on the right side which was present at the time the previous study. The spleen is enlarged measuring over 15.6 cm in AP dimension. This is actually improved from 18 cm at the time the previous examination. There has been cholecystectomy. The liver is nodular in contour consistent with cirrhosis. There are no definite masses on this noncontrast study. There are several 2 to 3 mm calcifications present in the right collecting system. There are also calculi on the left side. 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 This was also apparently present at the time the previous study. There is no evidence of hydronephrosis. There is stool throughout the left colon. This includes the rectum. The urinary bladder is not distended. There is a large ventral hernia on the right containing multiple small bowel loops as well as portions of the ascending colon. There are spondylotic changes in the lumbar spine. IMPRESSION: 1. New pleural effusions and bibasilar atelectasis. 2. Anasarca. Mild ascites. 3. Cirrhosis and improved splenomegaly. 4. Bilateral nephrolithiasis without evidence of obstructive uropathy. 5. Mild constipation. Right ventral hernia without evidence of obstruction. Electronically signed by Tai Soler 08/08/2019 1:35 PM
[2019-08-08 14:57] LABS: URINE SOURCE VOIDED
[2019-08-08 15:01] LABS: BILIRUBIN URINE NEGATIVE (NEGATIVE); BLOOD URINE SMALL (NEGATIVE); COLOR YELLOW; GLUCOSE URINE NEGATIVE (NEGATIVE); KETONE URINE TRACE mg/dL (NEGATIVE); LEUKOCYTES URINE SMALL (NEGATIVE); NITRITE URINE NEGATIVE (NEGATIVE); PROTEIN URINE TRACE mg/dL (NEGATIVE); SP GRAVITY URINE 1.021; TURBIDITY URINE CLEAR (CLEAR); UR EPITHELIAL CELLS <10 /HPF (<10); URINE BACTERIA NEGATIVE /HPF; UROBILINOGEN URINE 4 mg/dL (NORMAL)
[2019-08-08] MEDS: MYCAMINE 100 MG in NS 100 ML IV SCH (15:11)
--- NOTE | 2019-08-08 19:50 | PROGRESS NOTE ---
DATE: 08/08/2019 SUBJECTIVE: The patient had a fever of 101, despite these antibiotics. I spoke with Dr. Rodriguez and repeat blood cultures were given. OBJECTIVE: She has a fever of 99.5, tachycardic. HEENT: Within normal limits. Neck: Supple. Chest: Clear. Heart sounds are regular. Belly is soft, nontender. Large ventral hernia noted underneath the skin, is not macerated. Right leg redness is better with chronic lymphedema. PICC line was seen on the right side, looks fine. DIAGNOSTIC DATA: Repeat chest x-ray was stable. Repeat blood cultures and urine cultures are pending. ASSESSMENT AND PLAN: 1. Morbid obesity. 2. 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 3. Pancytopenia due to splenomegaly. 4. Ammonia encephalopathy, on Xifaxan and lactulose. 5. Large nonobstructive ventral hernia. Stable. 6. Chronic lymphedema with right leg cellulitis, on intravenous vancomycin. 7. Extended spectrum beta-lactamase Escherichia coli, on intravenous meropenem. 8. Dr. Rodriguez consult appreciated. Follow up on repeat blood cultures and will hold the discharge. LEVEL OF DOCUMENTATION: 25 minutes. cc: Lio Westfall MD
[2019-08-09] MEDS: MERREM 1 GM in NS 50 ML IV SCH ×3 (00:21→16:08)
[2019-08-09] MEDS: PROTONIX PO SCH ×2 (05:35→06:18)
[2019-08-09] MEDS: VANCOMYCIN 1,300 MG in NS 250 ML IV SCH ×2 (05:35→16:51)
[2019-08-09] MEDS: LACTULOSE PO SCH ×2 (09:52→20:20)
[2019-08-09] MEDS: ALDACTONE PO SCH (09:53)
[2019-08-09] MEDS: LEXAPRO PO SCH (09:53)
[2019-08-09] MEDS: MYCAMINE 100 MG in NS 100 ML IV SCH (09:53)
[2019-08-09] MEDS: ICAR-C PLUS PO SCH (09:53)
[2019-08-09] MEDS: XIFAXAN PO SCH ×2 (09:53→20:20)
--- NOTE | 2019-08-09 09:58 | PROGRESS NOTE ---
DATE: 08/09/2019 CHIEF COMPLAINT: The patient denies having any acute complaints this morning. OBJECTIVE: Vital Signs: Temperature 98.9 degrees, pulse 89 per minute, respiratory rate 20 per minute, blood pressure 110/53, pulse oximetry 98% on room air. General: Patient is alert and oriented x3. She does not appear to be in any acute distress. Cardiovascular System: First and second heart sounds are audible without any murmurs or gallops. Respiratory System: Bilateral lung air entry is good without any rales or rhonchi. Gastrointestinal System: Patient is morbidly obese. Abdomen is soft and nontender on palpation. Normal bowel sounds are present. Integumentary: Right lower extremity erythema appears to have improved, although there are still some underlying cellulitis signs present. LABS: No new labs have been done this morning. IMPRESSION: 1. ESBL positive E. coli urinary tract infection. 2. Right leg cellulitis that appears to be getting better. 3. Nonalcoholic steatohepatitis cirrhosis with pancytopenia that has been stable. PLAN: The patient will continue to get meropenem, vancomycin, and micafungin as per Infectious Diseases. Overall clinically she is in stable condition and therefore we are going to continue with current care. cc: MD Lio Tubbs MD MTDD
--- NOTE | 2019-08-09 15:27 | INFECTIOUS DISEASE PROGRESS NO ---
DATE: 08/09/2019 PRESENT ILLNESS: The patient has an extended spectrum beta lactamase producing E. coli urinary tract infection. She also has a right leg cellulitis and she has a very large hernia coming from the right lower part of the abdomen. It too has some cellulitis also. MEDICATIONS: The patient is receiving meropenem now for 6 days, vancomycin for 9 days, and micafungin for 1 day. PHYSICAL EXAMINATION: Temperature is 99.1 degrees, pulse 87, respirations 26, blood pressure 143/85. General: This is an obese, elderly female. She is in no acute distress. Head, Eyes, Ears, Nose, and Throat: She can hear my spoken words and see near objects. She does not have any white patches on her tongue. Neck: No pain with movement. Lungs: Clear to auscultation. Cardiovascular: Heart rate is regular. Abdomen: Soft. In the right lower quadrant, there is a very large hernia that has peau d'orange skin and some erythema on the abdominal wall hernia which I think has cellulitis on it. Neurologic: The patient is alert. She can move her extremities. There is no tremor. Extremities: As mentioned above, the right leg is erythematous and it is swollen, and it has peau d'orange skin as well. LABORATORY AND X-RAY: The patient had a renal stone search CAT scan. Renal calculi were present but none were obstructing. ASSESSMENT AND PLAN: The patient has right leg cellulitis and an Escherichia coli urinary tract infection. I am going to continue meropenem and vancomycin but discontinue micafungin. COMORBIDITIES: The patient is elderly, she is morbidly obese, and she has a very large abdominal wall hernia. cc: MD Lio Hdez MD
[2019-08-10] MEDS: MERREM 1 GM in NS 50 ML IV SCH ×3 (00:37→16:00)
[2019-08-10] MEDS: VANCOMYCIN 1,300 MG in NS 250 ML IV SCH ×2 (04:01→16:10)
[2019-08-10] MEDS: PROTONIX PO SCH (06:14)
[2019-08-10] MEDS: LACTULOSE PO SCH ×2 (09:08→20:57)
[2019-08-10] MEDS: ICAR-C PLUS PO SCH (09:08)
[2019-08-10] MEDS: XIFAXAN PO SCH ×2 (09:08→20:57)
[2019-08-10] MEDS: LEXAPRO PO SCH (09:08)
[2019-08-10] MEDS: ALDACTONE PO SCH (09:09)
--- NOTE | 2019-08-10 20:13 | PROGRESS NOTE ---
DATE: 08/10/2019 SUBJECTIVE: The patient is better and appreciated Dr. Rodriguez consult. Low-grade fever. Vitals are stable. PHYSICAL EXAMINATION: Vitals are stable. Morbidly obese and clinically no signs of source of infection noted. Repeat urine blood cultures so far negative. ASSESSMENT AND PLAN: 1. PICC line on the right side. 2. Extended-spectrum beta lactamase Escherichia coli right leg cellulitis. Currently on vancomycin and meropenem. I will discuss with Dr. Rodriguez. Consider outpatient antibiotics since the patient has a PICC line. We will arrange home health care with outpatient antibiotics for 2 weeks. Follow up. LEVEL OF DOCUMENTATION: 25 minutes. cc: Lio Westfall MD
[2019-08-11] MEDS: MERREM 1 GM in NS 50 ML IV SCH ×2 (00:25→10:01)
[2019-08-11] MEDS: VANCOMYCIN 1,300 MG in NS 250 ML IV SCH ×2 (05:47→18:47)
[2019-08-11] MEDS: PROTONIX PO SCH (06:47)
[2019-08-11 07:45] LABS: BASO# 0.03 X1000 (0.0-0.2); BASO% 0.6 % (0.0-0.8); EOS# 0.27 X1000 (0.0-0.7); EOS% 5.7 % (0.0-10.0); HEMATOCRIT 27.4 % (37.0-47.0); HEMOGLOBIN 8.7 g/dL (12.0-16.0); LYMPH# 0.93 X1000 (1.2-3.4); LYMPH% 19.5 % (20.5-51.1); MCH 32.3 PG (27-31); MCHC 31.8 g/dL (33-37); MCV 101.9 FL (81-99); MONO# 0.51 X1000 (0.11-0.59); MONO% 10.7 % (1.7-9.3); MPV 9.5 FL (7.4-10.4); NEUT# 3.03 X1000 (1.4-6.5); NEUT% 63.5 % (42.2-75.2); PLT 132 X1000 (130-400); RBC 2.69 XMIL (4.2-5.4); RDW 13.7 % (11.5-14.5); WBC 4.77 X1000 (4.8-10.8)
[2019-08-11 08:28] LABS: AGAP 5; ALB/GLOB RATIO 0.7; ALBUMIN 1.9 g/dL (3.5-5.0); ALKALINE PHOSPHATASE 69 U/L (32-104); BUN 12 mg/dL (8-22); CALCIUM 8.3 mg/dL (8.8-10.2); CHLORIDE 108 mmol/L (98-107); COSMO 277; CREATININE 0.4 mg/dL (0.5-0.9); ESTIMATED GFR > 60; GLUCOSE 90 mg/dL (70-104); GOT 42 U/L (10-30); GPT 21 U/L (10-36); POTASSIUM 4.1 mmol/L (3.5-5.1); SODIUM 139 mmol/L (136-145); TCO2 26 mmol/L (25-35); TOTAL BILIRUBIN 1.48 mg/dL (0.20-1.00); TOTAL PROTEIN 4.8 g/dL (6.3-8.3)
[2019-08-11] MEDS: ALDACTONE PO SCH (10:01)
[2019-08-11] MEDS: LEXAPRO PO SCH (10:01)
[2019-08-11] MEDS: LACTULOSE PO SCH ×2 (10:01→20:29)
[2019-08-11] MEDS: ICAR-C PLUS PO SCH (10:02)
[2019-08-11] MEDS: XIFAXAN PO SCH ×2 (10:02→20:29)
--- NOTE | 2019-08-11 11:38 | INFECTIOUS DISEASE PROGRESS NO ---
DATE: 08/11/2019 PRESENT ILLNESS: Ms. Duncan is being treated for an extended spectrum beta lactamase producing Escherichia coli urinary tract infection, a right lower extremity cellulitis, and a right abdominal hernia cellulitis. There was also some erythema to the right groin area. Which is most likely fungal. MEDICATIONS: She is receiving meropenem 1 g IV every 8 hours and IV vancomycin per pharmacy dosing. PHYSICAL EXAMINATION: Vital Signs: Temperature is 98.3 degrees, pulse rate 76, respiratory rate 18, blood pressure 120/49, O2 saturation is 97% on room air. General: This is a morbidly obese, chronically ill-appearing, elderly female. She is lying in the bed currently in no acute distress. HEENT: Atraumatic, normocephalic. Oral mucous membranes are pink and moist. Conjunctivae are pale. Neck: Supple. Trachea is midline. Cardiovascular: Heart rate is regular. S1, S2 noted. Respiratory: Lung sounds are clear to auscultation in the upper lobes. Diminished in the mid and bases. No work of breathing is noted. Abdomen: Soft, obese and nontender. There is a large hernia to the right lower quadrant with some erythema noted. Also underneath to the groin area, there is some moist warm skin that is erythematous and irritated. Integumentary: The right lower extremity calf area has erythema as well, which has improved somewhat. Neurologic: She is awake, alert, oriented, and able to move her extremities in the bed with generalized weakness noted. LABORATORY AND X-RAY: Today her white count is 4.77, hemoglobin 8.7, platelet count 132,000. Creatinine is 0.4. Estimated GFR is greater than 60. Total bilirubin is 1.48, AST 42, ALT 21, alkaline phosphatase 69. Her urine culture grew Escherichia coli that was extended spectrum beta lactamase producing. No imaging reports today. ASSESSMENT AND PLAN: Ms. Duncan has a urinary tract infection for which she has been receiving meropenem, which we will continue. We will increase the dose of meropenem to 2 g every 8 hours due to patient's size. Also, today is day 8 of the meropenem, which she will need for a total of 14 days. She is also receiving vancomycin for cellulitis, which we will continue. We will also provide clotrimazole cream, which should be applied under the herniated area to the erythematous groin. These plans have been discussed with and recommended by Dr. Rodriguez. COMORBIDITIES: Comorbidities for Ms. Duncan include that she is morbidly obese and elderly with CASANOVA cirrhosis and obstructive sleep apnea. Dictated by FELIPE Pate for Perry Rodriguez MD cc: MD Lio Hdez MD [facility]
--- NOTE | 2019-08-11 12:43 | Diag Imaging Result Doc PS360 ---
EXAM: CT EXT LOWER RIGHT W/CON 08/11/2019 HISTORY: R/o Abscess TECHNIQUE: CT of the right leg COMMENT: There is generalized subcutaneous edema particularly posteriorly and over the patella and patellar tendon. There are localized fluid collection seen anterolaterally in the lower leg from about the mid calf region and extending 9.6 cm caudally. There appear to be two separate loculations the posterior of which contains a denser layer dependently. Overall the fluid collections are a 0.3 cm in anterior posterior dimension and 3.2 cm transversely. There are no apparent air bubbles. There is some edema present deep to the fascia over the medial gastrocnemius. There is no evidence of acute bony abnormality or periosteal reaction. IMPRESSION: Edema versus cellulitis with fluid collections anterolaterally as described. The possibility of hematomata or abscesses cannot be excluded. Electronically signed by Tai Soler 08/11/2019 12:41 PM
[2019-08-11] MEDS: LOTRIMIN 1% CREAM TOP SCH ×2 (13:00→20:31)
[2019-08-11] MEDS: MERREM 2 GM in NS 100 ML IV SCH (17:36)
--- NOTE | 2019-08-11 19:52 | PROGRESS NOTE ---
DATE: 08/11/2019 SUBJECTIVE: The patient is not getting better. She has pain, and the right leg is diffusely edematous and tender. Not able to walk. Discussed with Dr. Rodriguez. PHYSICAL EXAMINATION: Vital Signs: Temperature is 98. Vitals are stable. General: Morbidly obese. Chest: Clear. Cardiovascular: Heart sounds are regular. Abdomen: Belly is soft, obese. Large ventral hernia. Extremities: Right leg redness is better with some fluid noted. INVESTIGATIONS: CBC: White cell count 4.7, hematocrit 27, platelet count 132. Sodium 139, potassium 4.1, BUN 12, creatinine 0.4, calcium 8.3, total bilirubin 1.4. ASSESSMENT AND PLAN: 1. Persistent fever. 2. Right leg cellulitis, not any getting better. CT scan of lower extremity showed some fluid collection. Consult with Dr. Cantu. Peripherally inserted central catheter line on the right side. 3. Extended-spectrum beta lactamase Escherichia coli, on meropenem. The patient is already on vancomycin. 4. Ammonia encephalopathy, on Xifaxan and lactulose. 5. 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 We will hold the discharge and follow up. LEVEL OF DOCUMENTATION: 30 minutes. cc: Lio Westfall MD
--- NOTE | 2019-08-11 20:22 | Extremity Venous Study ---
PROCEDURE NAME: Venous U/S Left Arm - 08/11/2019 REFERRING PHYSICIAN: Corey Westfall MD READING PHYSICIAN: Osmel Cantu MD WINDOWS PHONE DEVELOPER: Negar. INDICATION: Arm swelling. FINDINGS: The deep and superficial veins of left upper extremity were imaged throughout their course. They are compressible and patent without thrombus. INTERPRETATION: No deep venous thrombosis or superficial venous thrombus of the left upper extremity. cc: MD Lio Chapman MD
[2019-08-12] MEDS: MERREM 2 GM in NS 100 ML IV SCH ×3 (02:55→18:43)
[2019-08-12] MEDS: VANCOMYCIN 1,300 MG in NS 250 ML IV SCH ×2 (05:00→18:46)
[2019-08-12] MEDS: PROTONIX PO SCH (06:44)
[2019-08-12] MEDS: XIFAXAN PO SCH ×2 (09:04→20:08)
[2019-08-12] MEDS: LEXAPRO PO SCH (09:04)
[2019-08-12] MEDS: LACTULOSE PO SCH ×2 (09:04→20:08)
[2019-08-12] MEDS: ALDACTONE PO SCH (09:04)
[2019-08-12] MEDS: LOTRIMIN 1% CREAM TOP SCH ×2 (09:05→20:08)
[2019-08-12] MEDS: ICAR-C PLUS PO SCH (09:05)
[2019-08-12] MEDS ORDERED: XYLOCAINE-MPF 1%/EPI 1:200,000 INJ ONE (09:32)
--- NOTE | 2019-08-12 12:51 | PROGRESS NOTE ---
DATE: 08/12/2019 Ms. Duncan has some cellulitis on the right leg. CT scan of the leg reveals some fluid collection. She was seen by Dr. Cantu today who drained some of the fluid out. She has a dressing today applied over it. The foot looks edematous. Besides this, she also has ammonia induce encephalopathy and has been on Xifaxan as well as lactulose. Her blood sugar was 111. Vital signs are stable. She is being treated with meropenem and vancomycin IV. We are going to continue with the current management on her. cc: MD Lio Parr MD
--- NOTE | 2019-08-12 14:06 | GENERAL SURGERY CONSULTATION ---
DATE: 08/12/2019 REASON FOR CONSULTATION: Right leg cellulitis and abscess. REQUESTING PHYSICIAN: Dr. Westfall. HISTORY OF PRESENT ILLNESS: This is a 64-year-old female who reports a 2-week history of right lower leg swelling, redness, warmth, and pain. It is tender to palpation. She says it has improved slightly overnight. She has no known injury to her leg or previous episodes that were as severe as this. In addition she has been treated for E. coli urinary tract infection during this admission. PAST MEDICAL HISTORY: Cirrhosis, cervical cancer, ventral hernia, obstructive sleep apnea, depression, obesity. PAST SURGICAL HISTORY: Hysterectomy, cholecystectomy, tonsillectomy, cataract surgery. ALLERGIES: No known drug allergies. SOCIAL HISTORY: Negative for tobacco, alcohol or illicit drug use. FAMILY HISTORY: Positive for coronary artery disease. CURRENT MEDICATIONS: Clotrimazole, Lexapro, lactulose, meropenem, vancomycin, Zofran, Protonix, Xifaxan, Aldactone, Ultram. REVIEW OF SYSTEMS: Ten systems reviewed and negative except as noted above. PHYSICAL EXAMINATION: Vital Signs: Temperature 98.4 degrees, pulse 76, respirations 23, blood pressure 124/61, O2 saturation 99%. General: She is in no acute distress and looks her stated age. HEENT: Normocephalic, atraumatic. Extraocular muscles intact. Pupils equal, round, reactive to light. Sclerae anicteric. Moist mucous membranes. Hearing grossly normal. Neck: Supple. No thyromegaly. CV: Regular rate and rhythm. Respiratory: Bilateral breath sounds. No work of breathing. GI: Obese, soft, no organomegaly or mass. Musculoskeletal: Moves all extremities equally and well. Extremities: She is obese. There is some edema of the right lateral leg. Skin: Right lateral lower leg with erythema, slight warmth, a focal area of swelling and fluctuance. No clubbing or cyanosis noted. LABORATORY: White blood cell count 4.7, hemoglobin 8.7, hematocrit 27.4, platelet count 132,000. Electrolytes reviewed and unremarkable. INR is 1.28. IMAGING: CT scan of the right leg shows edema versus cellulitis with fluid collections in the right lateral leg. ASSESSMENT AND PLAN: A 64-year-old female with right lower leg cellulitis, probable abscesses. We will perform incision and drainage at the bedside today. I discussed the risks and benefits with her including bleeding, ongoing infection, numbness and pain. She understands and agrees to proceed. cc: MD Lio Chapman MD
--- NOTE | 2019-08-12 14:54 | OPERATIVE NOTE ---
PROCEDURE DATE: 08/12/2019 PREOPERATIVE DIAGNOSIS: Right leg cellulitis and abscess. POSTOP DIAGNOSIS: Right leg cellulitis and abscess with right leg hematoma. SURGEON: Dr. Osmel Cantu. PROCEDURE: Incision and drainage of right leg abscess and hematoma. FINDINGS: A large amount of thin bloody fluid was evacuated from the right leg. TECHNIQUE: The skin was prepped with Betadine. 1% lidocaine with epinephrine was used to anesthetize the skin. Eleven blade was used to make an incision over the fluctuant area. A hemostat was passed into the wound and we entered a cavity containing a large amount of thin bloody fluid. I swept the wound with a finger and broke up loculations and had copious amounts of bloody fluid evacuated. We did culture this. I packed the wound with 4 x 4 gauze and rewrapped the leg. She tolerated this well. There were no apparent complications. cc: MD Lio Chapman MD
[2019-08-13] MEDS: MERREM 2 GM in NS 100 ML IV SCH ×3 (01:05→17:13)
[2019-08-13] MEDS: VANCOMYCIN 1,300 MG in NS 250 ML IV SCH ×2 (05:59→18:19)
[2019-08-13] MEDS: PROTONIX PO SCH (06:01)
[2019-08-13] MEDS: XIFAXAN PO SCH ×2 (08:45→20:22)
[2019-08-13] MEDS: ICAR-C PLUS PO SCH (08:45)
[2019-08-13] MEDS: ALDACTONE PO SCH (08:46)
[2019-08-13] MEDS: LEXAPRO PO SCH (08:46)
[2019-08-13] MEDS: LACTULOSE PO SCH ×2 (08:47→20:21)
[2019-08-13] MEDS: LOTRIMIN 1% CREAM TOP SCH ×2 (08:51→20:22)
--- NOTE | 2019-08-13 09:16 | GENERAL SURGERY PROGRESS NOTE ---
DATE: 08/13/2019 SUBJECTIVE: The patient feels better. No new complaints. OBJECTIVE: She is afebrile. Vital signs are stable. General: She is awake, alert, and oriented x3. No acute distress. Extremities: The right leg was examined. The gauze was removed. There was no further bleeding. There was no foul drainage. There is less swelling. She is not very tender. Wound culture is pending. ASSESSMENT AND PLAN: A 64-year-old female status post incision and drainage of right leg infected hematoma with surrounding cellulitis. We are awaiting culture results. We will continue packing the wound once daily for now. Continue current antibiotics. cc: MD Lio Chapman MD
[2019-08-14] MEDS: MERREM 2 GM in NS 100 ML IV SCH ×3 (01:45→17:59)
--- NOTE | 2019-08-14 04:08 | PROGRESS NOTE ---
DATE: 08/13/2019 Ms. Duncan has had some aspiration of the fluid done. She has a hematoma on the right leg with surrounding cellulitis. She was seen by Dr. Cantu yesterday, and today she is on IV vancomycin. Blood sugar is 83. Her swelling is less. She has been walking some. So far, the blood cultures are negative, and right leg cultures are pending. -5 cc: MD Lio Parr MD
[2019-08-14] MEDS: VANCOMYCIN 1,300 MG in NS 250 ML IV SCH (06:15)
[2019-08-14] MEDS: PROTONIX PO SCH (06:16)
[2019-08-14] MEDS: LOTRIMIN 1% CREAM TOP SCH ×2 (09:48→21:07)
[2019-08-14] MEDS: LEXAPRO PO SCH (09:48)
[2019-08-14] MEDS: XIFAXAN PO SCH ×2 (09:48→21:06)
[2019-08-14] MEDS: ALDACTONE PO SCH (09:48)
[2019-08-14] MEDS: LACTULOSE PO SCH ×2 (09:48→21:06)
[2019-08-14] MEDS: ICAR-C PLUS PO SCH (09:48)
--- NOTE | 2019-08-14 12:54 | GENERAL SURGERY PROGRESS NOTE ---
DATE: 08/14/2019 SUBJECTIVE: The patient says her leg itches, but overall feels better. OBJECTIVE: Vital Signs: She is afebrile. Vital signs are stable. General: She is awake, alert, and oriented x3. No acute distress. Extremities: The right leg was examined. The swelling is improved. There is bloody drainage, but nothing purulent. Wound culture interestingly has no growth. ASSESSMENT AND PLAN: A 64-year-old female with severe right leg cellulitis and apparent hematoma and seroma. This has been drained. The cellulitis is much improved. Antibiotics per Dr. Rodriguez, but it does not appear that the fluid collection was infected. She did have cellulitis around it. I would continue packing the wound with iodoform gauze once daily for the next week, and she can follow up in my office as an outpatient. cc: MD Lio Chapman MD
--- NOTE | 2019-08-14 19:38 | INFECTIOUS DISEASE PROGRESS NO ---
DATE: 08/14/2019 PRESENT ILLNESS: The patient is being treated for an extended-spectrum beta- lactamase producing Escherichia coli urinary tract infection and a right leg cellulitis. There also is an element of cellulitis involving the large right abdominal hernia. MEDICATIONS: The patient has been on meropenem for 3 days and vancomycin for 14 days. PHYSICAL EXAMINATION: Vital Signs: Temperature is 98.3 degrees, pulse 75, respirations 18, blood pressure 111/46. General: This is a chronically ill-appearing elderly female. She is in no acute distress. She is morbidly obese. Head/Eyes/Ears/Nose/Throat: She can hear my spoken words and see near objects. Neck: No pain with movement. Lungs: Clear to auscultation. Cardiovascular: Regular heart rate. Abdomen: Soft. There is a large abdominal wall hernia in the right lower quadrant. There is some dependent erythema and peau d'orange of the skin. Neurologic: Patient is alert. She can move her extremities. There is no tremor. Extremities: There is decreased erythema in both legs. There is no erythema in either leg. The area where the incision was made to drain the fluid has a large dressing around it which is intact. LAB AND RADIOLOGY: No new lab or radiology for today. ASSESSMENT AND PLAN: The patient is being treated for urinary tract infection and a leg and abdominal wall hernia cellulitis. The fluid that was drained from the right leg does not appear to be an abscess. Culture from it is negative. However, the patient has been on antibiotics for a while. My plan now is to continue meropenem for a few more days pending all the results of cultures and discontinue vancomycin. I am going to order for tomorrow a CBC and BMP. COMORBIDITIES: The patient is morbidly obese, and she has cirrhosis and obstructive sleep apnea, and she has a huge abdominal wall hernia. cc: MD Lio Hdez MD MTDD
[2019-08-15] MEDS: MERREM 2 GM in NS 100 ML IV SCH ×3 (02:29→18:32)
--- NOTE | 2019-08-15 04:52 | PROGRESS NOTE ---
DATE: 08/14/2019 SUBJECTIVE: I appreciated Dr. Osmel Cantu's consult. Apparently, patient had I D done. The right lower extremity drained some serosanguineous blood. The patient is getting out of the bed, and getting some physical therapy. PHYSICAL EXAMINATION: Vital Signs: Temperature 98.2 degrees, pulse 76, and blood pressure 101/76. HEENT: Exam within normal limits. Neck: Supple. Chest: Bilateral air entry. Heart: Sounds are regular. Abdomen: Belly is soft, obese, and nontender. Good bowel sounds. Extremities: Right leg has dressing applied. MICROBIOLOGY/CULTURES: No growth nondetected. ASSESSMENT AND PLAN: Right leg cellulitis, ESBL Escherichia coli, and status post I D. Out of bed with physical therapy. Check the labs in the morning. Continue on meropenem. Slowly, we can discharge home either IV antibiotics or p.o. antibiotics. I would prefer to give IV antibiotics for 10 days. We will discuss with Dr. Rodriguez. LEVEL OF DOCUMENTATION: 25 minutes. cc: Lio Westfall MD M[facility]Geoffrey
[2019-08-15] MEDS: PROTONIX PO SCH (06:16)
[2019-08-15 08:14] LABS: BASO# 0.03 X1000 (0.0-0.2); BASO% 1.2 % (0.0-0.8); EOS# 0.18 X1000 (0.0-0.7); EOS% 7.2 % (0.0-10.0); HEMATOCRIT 25.9 % (37.0-47.0); HEMOGLOBIN 8.2 g/dL (12.0-16.0); LYMPH# 0.68 X1000 (1.2-3.4); LYMPH% 27.1 % (20.5-51.1); MCH 32.3 PG (27-31); MCHC 31.7 g/dL (33-37); MONO# 0.23 X1000 (0.11-0.59); MONO% 9.2 % (1.7-9.3); MPV 10.5 FL (7.4-10.4); NEUT# 1.39 X1000 (1.4-6.5); NEUT% 55.3 % (42.2-75.2); PLT 113 X1000 (130-400); RBC 2.54 XMIL (4.2-5.4); RDW 13.5 % (11.5-14.5); WBC 2.51 X1000 (4.8-10.8)
[2019-08-15 08:58] LABS: AGAP 7; BUN 10 mg/dL (8-22); CALCIUM 8.2 mg/dL (8.8-10.2); CHLORIDE 109 mmol/L (98-107); COSMO 282; CREATININE 0.5 mg/dL (0.5-0.9); ESTIMATED GFR > 60; GLUCOSE 89 mg/dL (70-104); POTASSIUM 4.2 mmol/L (3.5-5.1); SODIUM 142 mmol/L (136-145); TCO2 26 mmol/L (25-35)
[2019-08-15] MEDS: XIFAXAN PO SCH ×2 (10:29→22:40)
[2019-08-15] MEDS: ALDACTONE PO SCH (10:29)
[2019-08-15] MEDS: LACTULOSE PO SCH ×2 (10:30→22:40)
[2019-08-15] MEDS: ICAR-C PLUS PO SCH (10:30)
[2019-08-15] MEDS: LOTRIMIN 1% CREAM TOP SCH ×2 (10:30→22:40)
[2019-08-15] MEDS: LEXAPRO PO SCH (10:30)
--- NOTE | 2019-08-15 16:05 | INFECTIOUS DISEASE PROGRESS NO ---
DATE: 08/15/2019 PRESENT ILLNESS: The patient has an extended spectrum beta lactamase producing E coli urinary tract infection, a right leg cellulitis, and there is cellulitis involving also the patient's right abdominal wall hernia. MEDICATIONS: The patient has been on meropenem for 4 days. She was on vancomycin also, but that was discontinued yesterday. PHYSICAL EXAMINATION: Vital Signs: Temperature is 97.9 degrees, pulse 74, respirations 18, blood pressure 116/52. General: This is a chronically ill and morbidly obese female. She is in no acute distress. Head/eyes/ears/nose/throat: She can hear my spoken words and see near objects. She does not have any white coating on her tongue. Neck: No stiffness. Lungs: Clear to auscultation. Cardiovascular: Heart rate is regular. Abdomen: Has a large abdominal wall hernia in the right lower quadrant. There is erythema present. Extremities: The patient has erythema involving both legs. There is a large dressing around the right leg. Patient has a PICC in her right arm. The site is not erythematous or purulent. LABORATORY AND RADIOLOGY: The CBC shows a white count of 2510, hemoglobin 8.2, and platelet count 113,000. The patient had a BMP ordered, and the results are back yet. ASSESSMENT AND PLAN: Patient has a urinary tract infection, abdominal wall cellulitis, and a right leg cellulitis, and there is still some small amount of cellulitis on the left leg. The patient's right leg had fluid drawn from it. The fluid from the patient's right leg which was obtained by Dr. Cantu when he drained the fluid from the leg is not growing anything at this time. Plan is to send the patient home on ertapenem 1 g IV daily for 2 weeks to be given through a PICC which is in place. I plan to have the patient come to my office in 2 weeks. At that time, the patient be examined, and most likely we will be able to stop the patient's antibiotics and remove the PICC. COMORBIDITIES: Morbidly obese, cirrhosis of the liver, obstructive sleep apnea, and huge abdominal wall hernia. cc: MD Lio Hdez MD
--- NOTE | 2019-08-16 00:33 | PROGRESS NOTE ---
DATE: 08/15/2019 SUBJECTIVE: I spoke to Dr. Rodriguez and he is arranging for IV antibiotics for 10 days as an outpatient. He had a PICC line on the right side. Dr. Cantu performed draining of the fluid collection on the right leg. OBJECTIVE: Temperature is 98 degrees, vitals are stable. The patient is feeling better. HEENT exam normal. Chest is clear. Heart sounds are regular. Belly is soft. Suboptimal exam. LABORATORY DATA: White cell count 2.5, hematocrit 26, platelets 113,000. SMA 7 is normal. ASSESSMENT AND PLAN: 1. Right leg cellulitis. 2. Extended-spectrum beta-lactamase Escherichia coli. 3. Cirrhosis of liver. 4. Status post irrigation and debridement. 5. Continue on meropenem. We will discontinue outpatient antibiotics with Invanz tomorrow. [facility]. We will follow up. Level of documentation is 25 minutes. cc: Lio Westfall MD
--- NOTE | 2019-08-16 00:50 | GENERAL SURGERY PROGRESS NOTE ---
DATE: 08/15/2019 SUBJECTIVE: The patient is feeling better. She has had no new changes. OBJECTIVE: She is afebrile. Vital signs are stable.General: She is awake, alert, oriented x3. No acute distress. Extremities: The right leg was bandaged previously by Gricel Siddiqui. The wound was noted to be clean with red, draining serosanguineous fluid. No purulence. No warmth or redness. ASSESSMENT AND PLAN: A 64-year-old female with right leg cellulitis and drainage of hematoma. She can continue packing the wound and follow up with me as an outpatient. cc: MD Lio Chapman MD
[2019-08-16] MEDS: MERREM 2 GM in NS 100 ML IV SCH ×2 (01:39→09:50)
[2019-08-16] MEDS: PROTONIX PO SCH (06:04)
[2019-08-16] MEDS ORDERED: INVANZ 1 GM/NS 1 GM/50 ML IVPB IV SCH (08:00)
[2019-08-16 08:06] VITALS: BP 111/41
[2019-08-16] MEDS: LOTRIMIN 1% CREAM TOP SCH (09:07)
[2019-08-16] MEDS: XIFAXAN PO SCH (09:07)
[2019-08-16] MEDS: ALDACTONE PO SCH (09:07)
[2019-08-16] MEDS: LACTULOSE PO SCH (09:07)
[2019-08-16] MEDS: LEXAPRO PO SCH (09:07)
[2019-08-16] MEDS: ICAR-C PLUS PO SCH (09:07)
--- NOTE | 2019-08-17 20:22 | DISCHARGE SUMMARY ---
ADMISSION DATE: 07/31/2019 DISCHARGE DATE: 08/16/2019 DISCHARGING DIAGNOSES: 1. Right leg cellulitis with fluid collection. 2. Extended spectrum beta-lactamase Escherichia coli. 3. Morbid obesity. 4. Large ventral hernia. 5. 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 6. Pancytopenia due to splenomegaly. 7. Obstructive sleep apnea. 8. Depression. CONSULTATIONS: 1. sOmel Cantu MD 2. Perry Rodriguez MD PROCEDURES: 1. Incision and drainage of right leg. No significant pus noted. 2. Peripherally inserted central catheter line on the right side. BRIEF HISTORY: Please see the H and P that was done on 07/30/2019. In brief, she is a 64-year- old white female with above problems, admitted by hospitalist with fever, UTI, right leg swelling, not able to walk with mental confusion. The patient was found to have right leg cellulitis and urinary tract infection. HOSPITAL COURSE: I am going to summarize the problems as follows. 1. The patient was given IV vancomycin and meropenem for cellulitis of right leg as well as ESBL Escherichia coli. Despite aggressive treatment with underlying immunocompromised state, the patient failed to improve with fever of 101. 2. The patient was given IV albumin followed by Lasix for diuresis. 3. The patient was bedridden, requiring physical therapy for assistance. 4. Poor intravenous access. PICC line was placed on the right side. Dr. Rodriguez was consulted, and it appears to be on the CT of right leg. There is some fluid collection, cannot rule out abscess. The patient was extremely tender. Surgical consult was obtained by Dr. Cantu who did the incision and drainage, and he drained some infected blood. On follow up, the swelling is much better. Venous Dopplers were negative for acute DVT. Patient able to get out of the bed with assistance. LABORATORY DATA AT THE TIME OF DISCHARGE: CBC: White cell count 2.5, hematocrit 25.9, platelets 113,000. Sodium 142, potassium 4.2, chloride 109, BUN 10, creatinine 0.9, glucose 105, and repeat blood cultures are negative. Urine cultures: E coli ESBL positive. At the time of discharge patient was stable, and the weight is 296 pounds. Tdap was given 12/27/2018. Pneumococcal vaccine 13 was given 10/19/2018. Flu vaccine 06/29/2019. DISCHARGE MEDICATIONS: Lexapro 10 mg daily, Lasix 40 daily, Icar C Plus 1 tablet daily, Aldactone 50 daily, lactulose 30 mg p.o. b.i.d., and continue IV Invanz 1 g daily for [address] Rodriguez and follow up in his office for the right leg as well as in my office. FOLLOWUP: With above consultants. cc: MD Osmel Fuentes MD Leroy F. Harris, MD [facility]
== END 2019-08-16 12:33 | disposition home health service (06) | DRG 580 ==
LOC: SUPCPDRO → ED 17:04 → SUATTDRO 07-31 00:34 → 3N 07-31 00:34
PROVIDERS: ADMIT Internal Medicine; ATTEND Internal Medicine